=== PATIENT | female | born 1945 | race Two or more races ===

== ENCOUNTER 2020-09-22 13:45 | Inpatient (IN) | payer OTHER ==
[~2020-09-22] VITALS: Ht 160 cm; Wt 85.0 kg
[2020-09-22] MEDS ORDERED: LORazepam 2MG/ML-1ML VIAL IV ONE (14:15)
[2020-09-22] MEDS ORDERED: SODIUM CHLORIDE 0.9% 500 ML IV ONE (14:15)
[2020-09-22] MEDS ORDERED: ONDANSETRON HCL 4 MG/2 ML VIAL IV ONE (14:15)
[2020-09-22 14:59] LABS: Basophils # (auto) 0 10 ^3/uL (0-0.2); Basophils % (auto) 0.5 % (0.0-2.0); Eosinophils # (auto) 0 10 ^3/uL (0-0.8); Eosinophils % (auto) 0.5 % (0.0-7.0); Hematocrit 36.1 % (36.0-46.0); Hemoglobin 12.8 g/dL (12.2-16.2); Mean Corpuscular Hemoglobin 30.3 pg (28.0-32.0); Mean Corpuscular Hgb Conc. 35.5 g/dL (32.0-36.0); Mean Corpuscular Volume 85.5 fL (80.0-100.0); Monocytes # (auto) 0.3 10 ^3/uL (0-1.3); Monocytes % (auto) 3.1 % (0.0-12.0); Neutrophils # (auto) 8.5 10 ^3/uL (1.6-8.6); Neutrophils % (auto) 85.9 % (37.0-80.0); Red Blood Cells 4.23 10^6/uL (4.0-5.20); Red Cell Distribution Width 14.5 % (11.8-14.3); White Blood Cell 9.9 10^3/uL (4.4-10.8)
[2020-09-22 15:38] LABS: Albumin 3.6 g/dL (3.4-5.0); Anion Gap 7 (5-15); Blood Urea Nitrogen 20 mg/dL (7-18); Calcium 8.5 mg/dL (8.5-10.1); Carbon Dioxide 26 mmol/L (21-32); Chloride 104 mmol/L (98-107); Glucose 194 mg/dL (74-106); Magnesium 1.9 mg/dL (1.6-2.6); Potassium 3.7 mmol/L (3.5-5.1); Sodium 137 mmol/L (136-145)
[2020-09-22 15:43] LABS: Alanine Aminotransferase 21 U/L (13-56); Alkaline Phosphatase 127 U/L (45-117); Aspartate Aminotransferase 33 U/L (15-37); Bilirubin, Total 0.7 mg/dL (0.2-1.0); GFR African American 94 mL/min; GFR Non-African American 77 mL/min; Total Protein 9.1 g/dL (6.4-8.2)
[2020-09-22] MEDS ORDERED: MORPHINE SULF INJ 2 MG/ML SYRINGE 1ML IV PRN (18:15)
[2020-09-22] MEDS ORDERED: NITROGLYCERIN 0.4 MG SL TAB SL PRN (18:15)
[2020-09-22 19:59] VITALS: BP 162/82
[2020-09-22] MEDS ORDERED: ONDANSETRON HCL 4 MG/2 ML VIAL IV PRN (20:30)
[2020-09-22] MEDS ORDERED: ACETAMINOPHEN 325 MG TAB PO PRN (20:30)
[2020-09-22] MEDS ORDERED: ONDANSETRON HCL 4 MG/2 ML VIAL ONE (20:37)
[2020-09-22] MEDS ORDERED: LISI20TA28 PO (21:54)
[2020-09-22] MEDS ORDERED: LEVO100T8 PO (21:54)
[2020-09-22] MEDS ORDERED: METF-370 PO (21:54)
[2020-09-22] MEDS ORDERED: GLIP5TAB12 PO (21:54)
[2020-09-22 22:00] VITALS: BP 119/63
[2020-09-23] MEDS ORDERED: hydrALAZINE HCL 20 MG/ML VL IV PRN (02:30)
[2020-09-23] MEDS ORDERED: DOCUSATE SOD 100 MG CAP PO PRN (02:30)
[2020-09-23] MEDS ORDERED: ALBUTEROL SULF 2.5 MG/0.5ML(0.5%) NEB SOLN NEB PRN (02:30)
[2020-09-23] MEDS ORDERED: HYDROcodone-ACET 5/325MG TAB PO PRN (02:30)
[2020-09-23] MEDS ORDERED: ACETAMINOPHEN 325 MG TAB PO PRN (02:30)
[2020-09-23] MEDS ORDERED: NITROGLYCERIN 0.4 MG SL TAB SL PRN (02:30)
[2020-09-23] MEDS ORDERED: ALUM & MAG HYDROX-SIMETH LIQ(MAALOX) 30 ML PO PRN (02:30)
[2020-09-23] MEDS ORDERED: METOCLOPRAMIDE HCL 5MG/ml INJ 2ml VIAL IV PRN (02:30)
[2020-09-23] MEDS ORDERED: MORPHINE SULF INJ 2 MG/ML SYRINGE 1ML IV PRN ×2 (02:30)
[2020-09-23] MEDS ORDERED: DEXTROSE (50%) 50ML SYRG IV PRN (02:30)
[2020-09-23] MEDS ORDERED: ENOXAPARIN SOD 40 MG/0.4 ML SYRINGE SC ONE (02:30)
[2020-09-23] MEDS ORDERED: LORazepam 0.5 MG TAB PO PRN (02:30)
[2020-09-23] MEDS ORDERED: IPRATROPIUM BROM 0.5 MG/2.5ML INH SOL NEB PRN (02:45)
[2020-09-23 02:46] VITALS: BP 119/63
[2020-09-23 05:00] VITALS: BP 127/75
[2020-09-23] MEDS: InsuLIN REG 1unit/0.01ml Soln (100units/ml) SC SCH ×4 (06:00→23:23)
[2020-09-23] MEDS: ACCU-CHEK COMFORT CURVE STRIP VI SCH ×4 (06:00→23:21)
[2020-09-23] MEDS ORDERED: IPRATROPIUM BROM 0.5 MG/2.5ML INH SOL NEB SCH (06:00)
[2020-09-23] MEDS: SODIUM CHLORIDE 0.9% 1,000 ML IV SCH ×2 (06:25→17:25)
[2020-09-23] MEDS: FUROSEMIDE 20 MG/2 ML VIAL IV SCH ×2 (06:26→17:24)
[2020-09-23] MEDS: methylPREDNISolone SOD SUCC 40 MG/ML VL IV SCH ×3 (06:26→22:14)
[2020-09-23] MEDS: DOXYCYCLINE 100MG/250ML 250 ML IV SCH ×2 (06:26→12:45)
[2020-09-23] MEDS: LEVOTHYROXINE SODIUM 100 MCG TAB PO SCH (06:27)
[2020-09-23] MEDS ORDERED: glipiZIDE 5 MG TAB PO SCH (07:00)
[2020-09-23 07:23] LABS: Cholesterol 178 mg/dL (< 200); HDL Cholesterol 83 mg/dL (40-59); LDL Cholesterol 90 mg/dL (< 100); Triglycerides 77 mg/dL (< 150)
[2020-09-23] MEDS: metFORMIN HYDROCHLORIDE 500 MG TAB PO SCH ×2 (09:03→17:25)
[2020-09-23] MEDS: ASPirin 81 mg TAB PO SCH (09:04)
[2020-09-23] MEDS: CITALOPRAM HYDROBR 20 MG TAB PO SCH (09:04)
[2020-09-23] MEDS: FAMOTIDINE (10MG/ML) 2ML VL IV SCH ×2 (09:04→22:14)
[2020-09-23] MEDS: METOPROLOL SUCCINATE XL 50 MG TAB PO SCH (09:05)
[2020-09-23] MEDS: LISINOPRIL 20 MG TAB PO SCH (09:05)
[2020-09-23 09:13] VITALS: BP 145/78
[2020-09-23 13:15] VITALS: BP 134/75
[2020-09-23 17:45] VITALS: BP 140/74
[2020-09-23 21:53] VITALS: BP 135/67
[2020-09-23] MEDS: ATORVASTATIN 20 MG TAB PO SCH (22:15)
[2020-09-24] MEDS: DOXYCYCLINE 100MG/250ML 250 ML IV SCH ×2 (02:06→13:07)
[2020-09-24 03:07] LABS: Basophils # (auto) 0 10 ^3/uL (0-0.2); Basophils % (auto) 0.2 % (0.0-2.0); Eosinophils # (auto) 0 10 ^3/uL (0-0.8); Hematocrit 36.9 % (36.0-46.0); Hemoglobin 12.8 g/dL (12.2-16.2); Lymphocytes # (auto) 0.7 10 ^3/uL (0.4-5.4); Mean Corpuscular Hemoglobin 29.8 pg (28.0-32.0); Mean Corpuscular Hgb Conc. 34.8 g/dL (32.0-36.0); Mean Corpuscular Volume 85.6 fL (80.0-100.0); Monocytes # (auto) 0.1 10 ^3/uL (0-1.3); Monocytes % (auto) 0.8 % (0.0-12.0); Neutrophils # (auto) 8.6 10 ^3/uL (1.6-8.6); Red Blood Cells 4.31 10^6/uL (4.0-5.20); Red Cell Distribution Width 14.2 % (11.8-14.3); White Blood Cell 9.4 10^3/uL (4.4-10.8)
[2020-09-24 03:26] LABS: Albumin 3.2 g/dL (3.4-5.0); Calcium 8.8 mg/dL (8.5-10.1); Potassium 3.9 mmol/L (3.5-5.1)
[2020-09-24 03:29] LABS: BUN/Creatinine Ratio 20.8; Total Protein 8.7 g/dL (6.4-8.2)
[2020-09-24 05:07] VITALS: BP 149/67
[2020-09-24] MEDS: methylPREDNISolone SOD SUCC 40 MG/ML VL IV SCH ×3 (05:34→22:28)
[2020-09-24] MEDS: FUROSEMIDE 20 MG/2 ML VIAL IV SCH ×2 (05:35→16:57)
[2020-09-24] MEDS: ACCU-CHEK COMFORT CURVE STRIP VI SCH ×3 (05:47→16:59)
[2020-09-24] MEDS: InsuLIN REG 1unit/0.01ml Soln (100units/ml) SC SCH ×3 (05:50→17:09)
[2020-09-24] MEDS: LEVOTHYROXINE SODIUM 100 MCG TAB PO SCH (06:10)
[2020-09-24 09:00] VITALS: BP 127/57
[2020-09-24] MEDS: metFORMIN HYDROCHLORIDE 500 MG TAB PO SCH ×2 (09:37→16:57)
[2020-09-24] MEDS: CITALOPRAM HYDROBR 20 MG TAB PO SCH (09:38)
[2020-09-24] MEDS: ASPirin 81 mg TAB PO SCH (09:38)
[2020-09-24] MEDS: LISINOPRIL 20 MG TAB PO SCH (09:38)
[2020-09-24] MEDS: METOPROLOL SUCCINATE XL 50 MG TAB PO SCH (09:38)
[2020-09-24] MEDS: FAMOTIDINE (10MG/ML) 2ML VL IV SCH ×2 (09:38→22:28)
[2020-09-24] MEDS: SODIUM CHLORIDE 0.9% 1,000 ML IV SCH (11:37)
[2020-09-24 13:00] VITALS: BP 131/60
[2020-09-24 17:00] VITALS: BP 146/76
[2020-09-24 22:00] VITALS: BP 165/81
[2020-09-24] MEDS: ATORVASTATIN 20 MG TAB PO SCH (22:28)
[2020-09-25] MEDS: ACCU-CHEK COMFORT CURVE STRIP VI SCH ×4 (00:49→18:14)
[2020-09-25] MEDS: InsuLIN REG 1unit/0.01ml Soln (100units/ml) SC SCH ×4 (00:49→18:00)
[2020-09-25] MEDS: DOXYCYCLINE 100MG/250ML 250 ML IV SCH (01:50)
[2020-09-25 03:33] LABS: Basophils # (auto) 0 10 ^3/uL (0-0.2); Basophils % (auto) 0.1 % (0.0-2.0); Eosinophils # (auto) 0 10 ^3/uL (0-0.8); Hematocrit 37.4 % (36.0-46.0); Lymphocytes # (auto) 0.8 10 ^3/uL (0.4-5.4); Mean Corpuscular Hemoglobin 29.5 pg (28.0-32.0); Mean Corpuscular Hgb Conc. 34.8 g/dL (32.0-36.0); Mean Corpuscular Volume 84.7 fL (80.0-100.0); Monocytes # (auto) 0.2 10 ^3/uL (0-1.3); Monocytes % (auto) 2.1 % (0.0-12.0); Neutrophils # (auto) 10.1 10 ^3/uL (1.6-8.6); Neutrophils % (auto) 90.8 % (37.0-80.0); Nucleated Red Blood Cells % 0.1 %; Red Blood Cells 4.42 10^6/uL (4.0-5.20); White Blood Cell 11.1 10^3/uL (4.4-10.8)
[2020-09-25 04:09] LABS: Potassium 3.5 mmol/L (3.5-5.1)
[2020-09-25] MEDS: SODIUM CHLORIDE 0.9% 1,000 ML IV SCH ×2 (04:09→21:10)
[2020-09-25 04:13] LABS: BUN/Creatinine Ratio 25.7; Calcium 8.8 mg/dL (8.5-10.1)
[2020-09-25 04:34] LABS: Total Protein 8.2 g/dL (6.4-8.2)
[2020-09-25 05:00] VITALS: BP 163/76
[2020-09-25] MEDS: methylPREDNISolone SOD SUCC 40 MG/ML VL IV SCH ×3 (05:26→21:25)
[2020-09-25] MEDS: FUROSEMIDE 20 MG/2 ML VIAL IV SCH ×2 (05:26→18:14)
[2020-09-25] MEDS: LEVOTHYROXINE SODIUM 100 MCG TAB PO SCH (06:13)
[2020-09-25 08:00] VITALS: BP 136/75
[2020-09-25] MEDS: metFORMIN HYDROCHLORIDE 500 MG TAB PO SCH ×2 (08:25→18:14)
[2020-09-25] MEDS: ASPirin 81 mg TAB PO SCH (10:24)
[2020-09-25] MEDS: METOPROLOL SUCCINATE XL 50 MG TAB PO SCH (10:26)
[2020-09-25] MEDS: LISINOPRIL 20 MG TAB PO SCH (10:31)
[2020-09-25] MEDS: CITALOPRAM HYDROBR 20 MG TAB PO SCH (10:32)
[2020-09-25] MEDS: FAMOTIDINE (10MG/ML) 2ML VL IV SCH ×2 (10:32→21:25)
[2020-09-25 10:34] LABS: INR 1.18 (0.9-1.15); Partial Thromboplastin Time 25.6 sec (23.0-31.2)
[2020-09-25] MEDS: metroNIDAZOLE 500MG/100ML 100 ML IV SCH ×3 (10:40→21:25)
[2020-09-25 12:00] VITALS: BP 147/74
[2020-09-25] MEDS ORDERED: cefTRIAXone 1GM/50ML D5W 50 ML IV ONE (13:00)
[2020-09-25 16:00] VITALS: BP 143/73
[2020-09-25] MEDS: DOXYCYCLINE 100 MG TAB/CAP PO SCH (21:25)
[2020-09-25] MEDS: ATORVASTATIN 20 MG TAB PO SCH (21:25)
[2020-09-25 22:00] VITALS: BP 139/74
[2020-09-26] MEDS: ACCU-CHEK COMFORT CURVE STRIP VI SCH ×3 (00:19→12:45)
[2020-09-26] MEDS: InsuLIN REG 1unit/0.01ml Soln (100units/ml) SC SCH ×3 (00:30→12:46)
[2020-09-26 05:00] VITALS: BP 142/70
[2020-09-26] MEDS: metroNIDAZOLE 500MG/100ML 100 ML IV SCH ×2 (06:31→14:24)
[2020-09-26] MEDS: methylPREDNISolone SOD SUCC 40 MG/ML VL IV SCH ×2 (06:32→14:24)
[2020-09-26] MEDS: FUROSEMIDE 20 MG/2 ML VIAL IV SCH (06:32)
[2020-09-26] MEDS: LEVOTHYROXINE SODIUM 100 MCG TAB PO SCH (06:50)
[2020-09-26 08:30] VITALS: BP 148/73
[2020-09-26] MEDS: metFORMIN HYDROCHLORIDE 500 MG TAB PO SCH (08:52)
[2020-09-26] MEDS: SODIUM CHLORIDE 0.9% 1,000 ML IV SCH (08:56)
[2020-09-26] MEDS ORDERED: cefTRIAXone 1GM/50ML D5W 50 ML IV SCH (09:00)
[2020-09-26] MEDS: ASPirin 81 mg TAB PO SCH (10:09)
[2020-09-26] MEDS: FAMOTIDINE (10MG/ML) 2ML VL IV SCH (10:09)
[2020-09-26] MEDS: CITALOPRAM HYDROBR 20 MG TAB PO SCH (10:10)
[2020-09-26] MEDS: DOXYCYCLINE 100 MG TAB/CAP PO SCH (10:10)
[2020-09-26] MEDS: METOPROLOL SUCCINATE XL 50 MG TAB PO SCH (10:12)
[2020-09-26] MEDS: LISINOPRIL 20 MG TAB PO SCH (10:13)
[2020-09-26 12:30] VITALS: BP 136/76
== END 2020-09-26 16:50 | disposition home or self-care (01) | DRG 871 ==
LOC: ER 13:45 → TELE 18:10 → TELE-CENTR 19:35
PROVIDERS: ADMIT Hospitalist; ATTEND Family Medicine
DX: A41.9 Sepsis, unspecified organism (principal); J18.9 Pneumonia, unspecified organism; J44.0 Chronic obstructive pulmonary disease with (acute) lower respiratory infection; I42.9 Cardiomyopathy, unspecified; K80.00 Calculus of gallbladder with acute cholecystitis without obstruction; I50.9 Heart failure, unspecified; D69.6 Thrombocytopenia, unspecified; E66.01 Morbid (severe) obesity due to excess calories; K31.84 Gastroparesis; K29.70 Gastritis, unspecified, without bleeding; K21.9 Gastro-esophageal reflux disease without esophagitis; E03.9 Hypothyroidism, unspecified; F32.9 Major depressive disorder, single episode, unspecified; J84.10 Pulmonary fibrosis, unspecified; Z68.33 Body mass index [BMI] 33.0-33.9, adult; D64.9 Anemia, unspecified; E11.43 Type 2 diabetes mellitus with diabetic autonomic (poly)neuropathy; E78.5 Hyperlipidemia, unspecified; I08.0 Rheumatic disorders of both mitral and aortic valves; I11.0 Hypertensive heart disease with heart failure; Z20.822 Contact with and (suspected) exposure to COVID-19; Z82.49 Family history of ischemic heart disease and other diseases of the circulatory system; Z79.84 Long term (current) use of oral hypoglycemic drugs; Z79.899 Other long term (current) drug therapy
CPT/HCPCS: 36415; 70450; 71045; 76705; 80053; 80061; 82962; 83036; 83735; 83880; 84484; 85025; 85049; 85610; 85730; 86850; 86900; 86901; 87040; 87426; 93005; 93306; 94640; 96361; 96374; 96375; G0378; J0696; J1815; J2405; J3490; J7042

== ENCOUNTER 2021-05-28 14:16 | Inpatient (IN) | payer OTHER ==
[~2021-05-28] VITALS: Ht 172.7 cm; Wt 91.5 kg
[~2021-05-28 14:16] MED LIST: GLIP5TAB12 PO; LEVO100T8 PO; LISI20TA28 PO; METF-370 PO
[2021-05-28] MEDS ORDERED: SODIUM CHLORIDE 0.9% 1,000 ML IV ONE (14:45)
[2021-05-28] MEDS ORDERED: MECL1TAB42 PO (16:21)
[2021-05-28 16:27] LABS: Basophils # (auto) 0 10 ^3/uL (0-0.2); Basophils % (auto) 0.6 % (0.0-2.0); Eosinophils # (auto) 0 10 ^3/uL (0-0.8); Eosinophils % (auto) 0.4 % (0.0-7.0); Hematocrit 40.7 % (36.0-46.0); Hemoglobin 13.9 g/dL (12.2-16.2); Lymphocytes # (auto) 0.4 10 ^3/uL (0.4-5.4); Lymphocytes % (auto) 4.6 % (10.0-50.0); Mean Corpuscular Hemoglobin 29.1 pg (28.0-32.0); Mean Corpuscular Hgb Conc. 34.1 g/dL (32.0-36.0); Mean Corpuscular Volume 85.2 fL (80.0-100.0); Monocytes # (auto) 0.3 10 ^3/uL (0-1.3); Monocytes % (auto) 3.7 % (0.0-12.0); Neutrophils # (auto) 7.6 10 ^3/uL (1.6-8.6); Neutrophils % (auto) 90.7 % (37.0-80.0); Nucleated Red Blood Cells % 0.1 %; Red Blood Cells 4.78 10^6/uL (4.0-5.20); Red Cell Distribution Width 13.8 % (11.8-14.3); White Blood Cell 8.4 10^3/uL (4.4-10.8)
[2021-05-28 16:42] LABS: Albumin 3.3 g/dL (3.4-5.0); Calcium 8.8 mg/dL (8.5-10.1); Potassium 4.5 mmol/L (3.5-5.1)
[2021-05-28 16:47] LABS: BUN/Creatinine Ratio 29.8; Bilirubin, Total 1.3 mg/dL (0.2-1.0)
[2021-05-28] MEDS ORDERED: ONDANSETRON HCL 4 MG/2 ML VIAL IV ONE (17:00)
[2021-05-28] MEDS ORDERED: MORPHINE SULFATE INJECTION 2 MG/ML SYRG IV PRN ×2 (17:15→23:15)
[2021-05-28] MEDS ORDERED: NITROGLYCERIN 0.4 MG SL TAB SL PRN (17:15)
[2021-05-28] MEDS ORDERED: DEXTROSE (50%) 50ML SYRG IV PRN ×2 (17:15→23:15)
[2021-05-28] MEDS ORDERED: PANTOPRAZOLE 40 MG/10 ML VIAL INJ IV ONE ×2 (17:45→23:15)
[2021-05-28] MEDS: ACCU-CHEK COMFORT CURVE STRIP VI SCH (22:15)
[2021-05-28] MEDS: InsuLIN REG 1unit/0.01ml Soln (100units/ml) SC SCH (22:18)
[2021-05-28] MEDS: SODIUM CHLORIDE 0.9% 1,000 ML IV SCH (23:00)
[2021-05-28] MEDS ORDERED: PROMETHAZINE-DM 5 ML ORAL SYRUP PO PRN (23:15)
[2021-05-28] MEDS ORDERED: LORazepam 0.5 MG TAB PO PRN (23:15)
[2021-05-28] MEDS ORDERED: LABETALOL HCL 5 MG/ML 4ML SYRINGE IV PRN (23:15)
[2021-05-28] MEDS ORDERED: MECLIZINE HCL 25 MG TAB PO PRN (23:15)
[2021-05-28] MEDS ORDERED: HYDROcodone-ACET 5/325MG TAB PO ONE (23:15)
[2021-05-28] MEDS ORDERED: SUCRALFATE 1 GM/10 ML ORAL SUSP PO ONE (23:15)
[2021-05-28] MEDS ORDERED: DOCUSATE SOD 100 MG CAP PO PRN (23:15)
[2021-05-28] MEDS ORDERED: ACETAMINOPHEN 325 MG TAB PO PRN (23:15)
[2021-05-28] MEDS ORDERED: hydrALAZINE HCL 20 MG/ML VL IV PRN (23:15)
[2021-05-28] MEDS ORDERED: METOCLOPRAMIDE HCL 5MG/ml INJ 2ml VIAL IV PRN (23:15)
[2021-05-28] MEDS ORDERED: metroNIDAZOLE 500MG/100ML 100 ML IV ONE (23:15)
[2021-05-28] MEDS ORDERED: IPRATROPIUM BROM 0.5 MG/2.5ML INH SOL NEB ONE (23:15)
[2021-05-28] MEDS ORDERED: MULTIPLE VITAMINS W/ MINERALS TAB PO ONE (23:15)
[2021-05-28] MEDS ORDERED: FOLIC ACID 1 MG TAB PO ONE (23:15)
[2021-05-28] MEDS ORDERED: MONTELUKAST SODIUM 10 MG TAB PO ONE (23:15)
[2021-05-28] MEDS ORDERED: DOXYCYCLINE 100MG/250ML 250 ML IV ONE (23:15)
[2021-05-28] MEDS ORDERED: LACTULOSE 20Gm/30ML SOLN PO PRN (23:15)
[2021-05-28] MEDS ORDERED: ISOSORBIDE MONONITRATE ER 60 MG TAB PO ONE (23:15)
[2021-05-28 23:32] LABS: Phosphorus 3.5 mg/dL (2.5-4.90)
[2021-05-29] VITALS (8 sets, daily range): BP systolic 123–151; BP diastolic 69–88
[2021-05-29] MEDS ORDERED: IPRATROPIUM BROM 0.5 MG/2.5ML INH SOL NEB SCH (02:00)
[2021-05-29 02:18] LABS: Urine Bacteria NONE SEEN /hpf (None Seen); Urine Blood TRACE /uL (Negative); Urine Hyaline Cast FEW /lpf (0 - 2); Urine Specific Gravity 1.025 (1.001-1.035); Urine WBC 1 /hpf (0 - 5)
[2021-05-29 02:29] LABS: Alcohol, Urine < 3.0 mg/dL (0-10); Amphetamine Screen, Urine NEGATIVE (NEGATIVE); Barbiturate Scree,Urine NEGATIVE (NEGATIVE); Benzodiazephine Screen, Urine NEGATIVE (NEGATIVE); Cannabinoid Screen, Urine NEGATIVE (NEGATIVE); Cocaine Screen, Urine NEGATIVE (NEGATIVE); Opiate Scree,Urine NEGATIVE (NEGATIVE); Phencyclidine Screen, Urine NEGATIVE (NEGATIVE)
[2021-05-29] MEDS: DOXYCYCLINE 100MG/250ML 250 ML IV SCH ×3 (04:14→23:15)
[2021-05-29] MEDS ORDERED: ACETYLCYSTEINE 10 %(100MG/ML) SOL 4ML NEB SCH (06:00)
[2021-05-29 06:21] LABS: Basophils # (auto) 0 10 ^3/uL (0-0.2); Basophils % (auto) 0.1 % (0.0-2.0); Eosinophils # (auto) 0.1 10 ^3/uL (0-0.8); Eosinophils % (auto) 1.3 % (0.0-7.0); Hematocrit 34.7 % (36.0-46.0); Hemoglobin 12.3 g/dL (12.2-16.2); Lymphocytes # (auto) 0.5 10 ^3/uL (0.4-5.4); Lymphocytes % (auto) 10.8 % (10.0-50.0); Mean Corpuscular Hgb Conc. 35.4 g/dL (32.0-36.0); Mean Corpuscular Volume 84.7 fL (80.0-100.0); Monocytes # (auto) 0.3 10 ^3/uL (0-1.3); Monocytes % (auto) 6.8 % (0.0-12.0); Neutrophils # (auto) 4.1 10 ^3/uL (1.6-8.6); Nucleated Red Blood Cells % 0.1 %; Red Blood Cells 4.09 10^6/uL (4.0-5.20); White Blood Cell 5.1 10^3/uL (4.4-10.8)
[2021-05-29 06:34] LABS: Potassium 3.5 mmol/L (3.5-5.1)
[2021-05-29] MEDS: FUROSEMIDE 20 MG/2 ML VIAL IV SCH ×2 (06:34→18:13)
[2021-05-29] MEDS: metroNIDAZOLE 500MG/100ML 100 ML IV SCH ×3 (06:34→22:10)
[2021-05-29] MEDS: SUCRALFATE 1 GM/10 ML ORAL SUSP PO SCH ×4 (06:35→22:10)
[2021-05-29] MEDS: LEVOTHYROXINE SODIUM 88 MCG TAB PO SCH (06:35)
[2021-05-29] MEDS: ACCU-CHEK COMFORT CURVE STRIP VI SCH ×8 (06:35→22:00)
[2021-05-29] MEDS: InsuLIN REG 1unit/0.01ml Soln (100units/ml) SC SCH ×7 (06:41→22:32)
[2021-05-29 06:53] LABS: Albumin 2.9 g/dL (3.4-5.0); BUN/Creatinine Ratio 34.2; Bilirubin, Total 1.1 mg/dL (0.2-1.0); Calcium 8.1 mg/dL (8.5-10.1); Magnesium 1.9 mg/dL (1.6-2.6); Phosphorus 3.5 mg/dL (2.5-4.90); Total Protein 6.7 g/dL (6.4-8.2)
[2021-05-29] MEDS: FOLIC ACID 1 MG TAB PO SCH (09:30)
[2021-05-29] MEDS: PANTOPRAZOLE 40 MG/10 ML VIAL INJ IV SCH (09:30)
[2021-05-29] MEDS: CITALOPRAM HYDROBR 20 MG TAB PO SCH (09:30)
[2021-05-29] MEDS: ASPirin 81 mg TAB PO SCH (09:30)
[2021-05-29] MEDS: ISOSORBIDE MONONITRATE 20 MG TAB PO SCH ×2 (09:31→22:15)
[2021-05-29] MEDS: CHOLECALCIFEROL (VITD3) 2,000 UNIT CAP/TAB PO SCH (09:31)
[2021-05-29] MEDS: CYANOCOBALAMIN 500 MCG TAB PO SCH (09:31)
[2021-05-29] MEDS: ENOXAPARIN SOD 40 MG/0.4 ML SYRINGE SC SCH (09:31)
[2021-05-29] MEDS: POTASSIUM CHL 20 Meq TABLET PO SCH ×2 (09:31→22:09)
[2021-05-29] MEDS: MULTIPLE VITAMINS W/ MINERALS TAB PO SCH (09:31)
[2021-05-29] MEDS: SODIUM CHLORIDE 0.9% 1,000 ML IV SCH (18:15)
[2021-05-29] MEDS ORDERED: InsuLIN REG 1unit/0.01ml Soln (100units/ml) SC SCH (22:00)
[2021-05-29] MEDS ORDERED: ATORVASTATIN 20 MG TAB PO SCH (22:00)
[2021-05-29] MEDS ORDERED: MONTELUKAST SODIUM 10 MG TAB PO SCH (22:00)
[2021-05-30 05:00] VITALS: BP 132/67
[2021-05-30 06:05] LABS: Basophils # (auto) 0 10 ^3/uL (0-0.2); Basophils % (auto) 0.3 % (0.0-2.0); Eosinophils # (auto) 0.2 10 ^3/uL (0-0.8); Eosinophils % (auto) 2.7 % (0.0-7.0); Hematocrit 36.8 % (36.0-46.0); Hemoglobin 12.9 g/dL (12.2-16.2); Lymphocytes # (auto) 0.6 10 ^3/uL (0.4-5.4); Lymphocytes % (auto) 9.1 % (10.0-50.0); Mean Corpuscular Hemoglobin 29.6 pg (28.0-32.0); Mean Corpuscular Hgb Conc. 35.1 g/dL (32.0-36.0); Mean Corpuscular Volume 84.3 fL (80.0-100.0); Monocytes # (auto) 0.5 10 ^3/uL (0-1.3); Monocytes % (auto) 8.4 % (0.0-12.0); Neutrophils % (auto) 79.5 % (37.0-80.0); Nucleated Red Blood Cells % 0.1 %; Red Blood Cells 4.37 10^6/uL (4.0-5.20); Red Cell Distribution Width 13.7 % (11.8-14.3); White Blood Cell 6.3 10^3/uL (4.4-10.8)
[2021-05-30 06:14] LABS: BUN/Creatinine Ratio 28.9; Calcium 8.3 mg/dL (8.5-10.1); Magnesium 1.7 mg/dL (1.6-2.6); Phosphorus 2.7 mg/dL (2.5-4.90); Potassium 3.7 mmol/L (3.5-5.1)
[2021-05-30] MEDS: SUCRALFATE 1 GM/10 ML ORAL SUSP PO SCH ×2 (06:29→12:56)
[2021-05-30] MEDS: LEVOTHYROXINE SODIUM 88 MCG TAB PO SCH (06:29)
[2021-05-30] MEDS: ACCU-CHEK COMFORT CURVE STRIP VI SCH ×3 (06:29→11:30)
[2021-05-30] MEDS: metroNIDAZOLE 500MG/100ML 100 ML IV SCH ×2 (06:29→14:00)
[2021-05-30] MEDS: FUROSEMIDE 20 MG/2 ML VIAL IV SCH (06:30)
[2021-05-30] MEDS: InsuLIN REG 1unit/0.01ml Soln (100units/ml) SC SCH ×2 (06:39→11:30)
[2021-05-30 08:00] VITALS: BP 137/75
[2021-05-30 09:00] VITALS: BP 137/75
[2021-05-30 09:10] LABS: INR 1.1 (0.9-1.15); Partial Thromboplastin Time 28.8 sec (23.6-33.0)
[2021-05-30] MEDS: MULTIPLE VITAMINS W/ MINERALS TAB PO SCH (10:00)
[2021-05-30] MEDS: ASPirin 81 mg TAB PO SCH (10:00)
[2021-05-30] MEDS: CHOLECALCIFEROL (VITD3) 2,000 UNIT CAP/TAB PO SCH (10:00)
[2021-05-30] MEDS: POTASSIUM CHL 20 Meq TABLET PO SCH (10:00)
[2021-05-30] MEDS: ISOSORBIDE MONONITRATE 20 MG TAB PO SCH (10:00)
[2021-05-30] MEDS: ENOXAPARIN SOD 40 MG/0.4 ML SYRINGE SC SCH (10:00)
[2021-05-30] MEDS: FOLIC ACID 1 MG TAB PO SCH (10:00)
[2021-05-30] MEDS: CYANOCOBALAMIN 500 MCG TAB PO SCH (10:00)
[2021-05-30] MEDS: CITALOPRAM HYDROBR 20 MG TAB PO SCH (10:00)
[2021-05-30] MEDS: PANTOPRAZOLE 40 MG/10 ML VIAL INJ IV SCH (10:00)
[2021-05-30] MEDS ORDERED: CAL025T GT (10:51)
[2021-05-30] MEDS ORDERED: MET25T PO (10:51)
[2021-05-30] MEDS: DOXYCYCLINE 100MG/250ML 250 ML IV SCH (11:15)
[2021-05-30 13:08] VITALS: BP 128/75
== END 2021-05-30 16:05 | disposition home or self-care (01) | DRG 306 ==
LOC: ER 14:16 → TELE 17:06 → TELE-WESTW 23:25
PROVIDERS: ADMIT Hospitalist; ATTEND Internal Medicine
DX: I08.0 Rheumatic disorders of both mitral and aortic valves (principal); I50.33 Acute on chronic diastolic (congestive) heart failure; J84.9 Interstitial pulmonary disease, unspecified; E44.1 Mild protein-calorie malnutrition; K80.00 Calculus of gallbladder with acute cholecystitis without obstruction; I16.9 Hypertensive crisis, unspecified; M35.1 Other overlap syndromes; I11.0 Hypertensive heart disease with heart failure; D69.6 Thrombocytopenia, unspecified; E11.65 Type 2 diabetes mellitus with hyperglycemia; K52.9 Noninfective gastroenteritis and colitis, unspecified; K21.9 Gastro-esophageal reflux disease without esophagitis; K31.84 Gastroparesis; F32.9 Major depressive disorder, single episode, unspecified; J44.9 Chronic obstructive pulmonary disease, unspecified; E03.9 Hypothyroidism, unspecified; Z20.822 Contact with and (suspected) exposure to COVID-19; Z53.29 Procedure and treatment not carried out because of patient's decision for other reasons; E11.43 Type 2 diabetes mellitus with diabetic autonomic (poly)neuropathy; E66.01 Morbid (severe) obesity due to excess calories; E78.5 Hyperlipidemia, unspecified; Z82.49 Family history of ischemic heart disease and other diseases of the circulatory system; Z68.30 Body mass index [BMI] 30.0-30.9, adult
CPT/HCPCS: 36415; 36600; 70450; 71045; 80048; 80053; 80061; 80307; 81001; 82728; 82805; 82962; 83036; 83615; 83690; 83735; 83880; 84100; 84443; 84484; 85025; 85379; 85610; 85730; 86850; 86900; 86901; 87040; 87086; 93005; 96361; 96365; 96375; C9113; G0378; J1815; J2405; J3490

== ENCOUNTER 2021-07-11 11:51 | Emergency (ER) | payer OTHER ==
[~2021-07-11] VITALS: Ht 162.6 cm; Wt 89.8 kg
[~2021-07-11 11:51] MED LIST changes: +MET25T PO
[2021-07-11] MEDS ORDERED: BENZ100C19 PO (14:27)
[2021-07-11] MEDS ORDERED: DOXY-286 PO (14:27)
[2021-07-11] MEDS ORDERED: cefTRIAXone SOD 1,000 MG VL IM ONE (14:30)
[2021-07-11] MEDS ORDERED: methylPREDNISolone SOD SUCC 125 MG/2 ML VL IM ONE (14:30)
[2021-07-11 14:45] VITALS: BP 105/68
== END 2021-07-11 14:58 | disposition home or self-care (01) ==
LOC: ER 11:51
DX: J18.9 Pneumonia, unspecified organism (principal); I10 Essential (primary) hypertension; E11.9 Type 2 diabetes mellitus without complications; E03.9 Hypothyroidism, unspecified; Z20.822 Contact with and (suspected) exposure to COVID-19
CPT/HCPCS: 36415; 71046; 87426; 96372; 99284; J0696; J2930

== ENCOUNTER 2021-08-04 18:49 | Inpatient (IN) | payer OTHER ==
[~2021-08-04] VITALS: Ht 170.2 cm; Wt 85.1 kg
[~2021-08-04 18:49] MED LIST changes: +BENZ100C19 PO; +DOXY-286 PO
[2021-08-04 19:33] LABS: Basophils # (auto) 0.1 10 ^3/uL (0-0.2); Basophils % (auto) 2.1 % (0.0-2.0); Eosinophils # (auto) 0.2 10 ^3/uL (0-0.8); Eosinophils % (auto) 2.9 % (0.0-7.0); Hematocrit 38.3 % (36.0-46.0); Hemoglobin 13.5 g/dL (12.2-16.2); Lymphocytes # (auto) 1.5 10 ^3/uL (0.4-5.4); Lymphocytes % (auto) 22.3 % (10.0-50.0); Mean Corpuscular Hemoglobin 30.2 pg (28.0-32.0); Mean Corpuscular Hgb Conc. 35.2 g/dL (32.0-36.0); Mean Corpuscular Volume 85.6 fL (80.0-100.0); Monocytes # (auto) 0.4 10 ^3/uL (0-1.3); Monocytes % (auto) 6.3 % (0.0-12.0); Neutrophils # (auto) 4.5 10 ^3/uL (1.6-8.6); Neutrophils % (auto) 66.4 % (37.0-80.0); Red Blood Cells 4.48 10^6/uL (4.0-5.20); Red Cell Distribution Width 14.3 % (11.8-14.3); White Blood Cell 6.7 10^3/uL (4.4-10.8)
[2021-08-04 19:43] LABS: Albumin 3.4 g/dL (3.4-5.0); BUN/Creatinine Ratio 21.6; Calcium 9.7 mg/dL (8.5-10.1); Magnesium 2.1 mg/dL (1.6-2.6); Potassium 4.7 mmol/L (3.5-5.1)
[2021-08-04 19:45] LABS: Bilirubin, Total 0.7 mg/dL (0.2-1.0); Total Protein 7.8 g/dL (6.4-8.2)
[2021-08-04 20:14] LABS: INR 1.05 (0.9-1.15); Partial Thromboplastin Time 27.3 sec (23.6-33.0)
[2021-08-04] MEDS ORDERED: ACETAMINOPHEN 325 MG TAB PO PRN (22:45)
[2021-08-04] MEDS ORDERED: ONDANSETRON HCL 4 MG/2 ML VIAL IV PRN (22:45)
[2021-08-04] MEDS ORDERED: HYDROcodone-ACET 5/325MG TAB PO PRN (22:45)
[2021-08-04] MEDS ORDERED: DEXTROSE (50%) 50ML SYRG IV PRN (22:45)
[2021-08-04] MEDS ORDERED: DOCUSATE SOD 100 MG CAP PO PRN (22:45)
[2021-08-04] MEDS ORDERED: FUROSEMIDE 20 MG TAB PO ONE (23:00)
[2021-08-04] MEDS ORDERED: MORPHINE SULFATE INJ 2 MG/ml SYRG IV PRN (23:45)
[2021-08-04] MEDS ORDERED: NITROGLYCERIN 0.4 MG SL TAB SL PRN (23:45)
[2021-08-05 00:40] VITALS: BP 121/64
[2021-08-05 05:25] LABS: Basophils # (auto) 0 10 ^3/uL (0-0.2); Basophils % (auto) 0.5 % (0.0-2.0); Eosinophils # (auto) 0.2 10 ^3/uL (0-0.8); Eosinophils % (auto) 3.1 % (0.0-7.0); Hematocrit 37.4 % (36.0-46.0); Hemoglobin 13.2 g/dL (12.2-16.2); Lymphocytes # (auto) 1.6 10 ^3/uL (0.4-5.4); Lymphocytes % (auto) 24.4 % (10.0-50.0); Mean Corpuscular Hgb Conc. 35.3 g/dL (32.0-36.0); Mean Corpuscular Volume 85.1 fL (80.0-100.0); Monocytes # (auto) 0.4 10 ^3/uL (0-1.3); Monocytes % (auto) 6.5 % (0.0-12.0); Neutrophils # (auto) 4.2 10 ^3/uL (1.6-8.6); Neutrophils % (auto) 65.5 % (37.0-80.0); Red Blood Cells 4.39 10^6/uL (4.0-5.20); White Blood Cell 6.4 10^3/uL (4.4-10.8)
[2021-08-05 05:27] VITALS: BP_SYST 117; BP_SYST 152; BP_DIAS 63; BP_DIAS 90
[2021-08-05 05:33] LABS: Albumin 3.3 g/dL (3.4-5.0); Calcium 9.2 mg/dL (8.5-10.1); Potassium 4.2 mmol/L (3.5-5.1)
[2021-08-05 05:37] LABS: BUN/Creatinine Ratio 25.3; Bilirubin, Total 1.1 mg/dL (0.2-1.0); Total Protein 7.6 g/dL (6.4-8.2)
[2021-08-05] MEDS: SODIUM CHLOR 0.9% PF (SALINE LOCK) 10ML VIAL/SYR IV SCH ×3 (06:08→21:09)
[2021-08-05] MEDS: InsuLIN REG 1unit/0.01ml Soln (100units/ml) SC SCH ×4 (06:13→21:08)
[2021-08-05] MEDS: ACCU-CHEK COMFORT CURVE STRIP VI SCH ×4 (06:14→21:08)
[2021-08-05] MEDS: LEVOTHYROXINE SODIUM 100 MCG TAB PO SCH (06:19)
[2021-08-05 09:00] VITALS: BP 131/58
[2021-08-05] MEDS: FUROSEMIDE 20 MG/2 ML VIAL IV SCH (09:46)
[2021-08-05] MEDS: ASPirin 81 mg TAB PO SCH (09:46)
[2021-08-05] MEDS: CARVEDILOL 12.5 MG TAB PO SCH ×2 (09:47→21:09)
[2021-08-05 13:00] VITALS: BP 106/61
[2021-08-05 17:00] VITALS: BP 127/66
[2021-08-05 22:00] VITALS: BP 115/61
[2021-08-06 05:00] VITALS: BP 112/60
[2021-08-06] MEDS: SODIUM CHLOR 0.9% PF (SALINE LOCK) 10ML VIAL/SYR IV SCH ×3 (06:00→22:00)
[2021-08-06] MEDS: LEVOTHYROXINE SODIUM 100 MCG TAB PO SCH (06:30)
[2021-08-06] MEDS: InsuLIN REG 1unit/0.01ml Soln (100units/ml) SC SCH ×5 (06:31→23:16)
[2021-08-06] MEDS: ACCU-CHEK COMFORT CURVE STRIP VI SCH ×4 (06:34→22:00)
[2021-08-06] MEDS: ASPirin 81 mg TAB PO SCH (09:17)
[2021-08-06] MEDS: CARVEDILOL 12.5 MG TAB PO SCH ×2 (09:17→23:19)
[2021-08-06 09:18] VITALS: BP 109/50
[2021-08-06] MEDS: FUROSEMIDE 20 MG/2 ML VIAL IV SCH (09:29)
[2021-08-06 13:00] VITALS: BP 107/44
[2021-08-06 17:00] VITALS: BP 137/70
[2021-08-06 22:00] VITALS: BP 121/47
[2021-08-07 05:00] VITALS: BP 127/61
[2021-08-07] MEDS: ACCU-CHEK COMFORT CURVE STRIP VI SCH ×4 (06:13→22:04)
[2021-08-07] MEDS: LEVOTHYROXINE SODIUM 100 MCG TAB PO SCH (06:13)
[2021-08-07] MEDS: SODIUM CHLOR 0.9% PF (SALINE LOCK) 10ML VIAL/SYR IV SCH ×3 (06:13→22:03)
[2021-08-07] MEDS: InsuLIN REG 1unit/0.01ml Soln (100units/ml) SC SCH ×4 (06:13→22:00)
[2021-08-07 06:34] LABS: Basophils # (auto) 0 10 ^3/uL (0-0.2); Basophils % (auto) 0.5 % (0.0-2.0); Eosinophils # (auto) 0.2 10 ^3/uL (0-0.8); Eosinophils % (auto) 3.9 % (0.0-7.0); Hematocrit 37.3 % (36.0-46.0); Lymphocytes # (auto) 1.5 10 ^3/uL (0.4-5.4); Lymphocytes % (auto) 25.8 % (10.0-50.0); Mean Corpuscular Hemoglobin 29.7 pg (28.0-32.0); Mean Corpuscular Hgb Conc. 34.8 g/dL (32.0-36.0); Mean Corpuscular Volume 85.5 fL (80.0-100.0); Monocytes # (auto) 0.4 10 ^3/uL (0-1.3); Monocytes % (auto) 7.2 % (0.0-12.0); Neutrophils # (auto) 3.7 10 ^3/uL (1.6-8.6); Neutrophils % (auto) 62.6 % (37.0-80.0); Nucleated Red Blood Cells % 0.1 %; Red Blood Cells 4.37 10^6/uL (4.0-5.20); Red Cell Distribution Width 14.1 % (11.8-14.3)
[2021-08-07 06:54] LABS: BUN/Creatinine Ratio 30.8; Potassium 3.9 mmol/L (3.5-5.1)
[2021-08-07] MEDS ORDERED: ADENOSINE 74 MG in GIVE UN-DILUTED 0 ML IV ONE (07:30)
[2021-08-07 09:00] VITALS: BP 133/59
[2021-08-07] MEDS: CARVEDILOL 12.5 MG TAB PO SCH ×2 (10:00→22:03)
[2021-08-07 13:00] VITALS: BP 133/52
[2021-08-07] MEDS: ASPirin 81 mg TAB PO SCH (16:39)
[2021-08-07] MEDS: FUROSEMIDE 20 MG/2 ML VIAL IV SCH (16:40)
[2021-08-07 17:00] VITALS: BP 140/76
[2021-08-07 22:00] VITALS: BP 118/71
[2021-08-08 05:00] VITALS: BP 150/68
[2021-08-08] MEDS: LEVOTHYROXINE SODIUM 100 MCG TAB PO SCH (06:21)
[2021-08-08] MEDS: SODIUM CHLOR 0.9% PF (SALINE LOCK) 10ML VIAL/SYR IV SCH ×3 (06:21→22:00)
[2021-08-08] MEDS: InsuLIN REG 1unit/0.01ml Soln (100units/ml) SC SCH ×4 (06:21→21:59)
[2021-08-08] MEDS: ACCU-CHEK COMFORT CURVE STRIP VI SCH ×4 (06:21→21:59)
[2021-08-08 09:00] VITALS: BP 124/70
[2021-08-08] MEDS: ASPirin 81 mg TAB PO SCH (10:19)
[2021-08-08] MEDS: CARVEDILOL 12.5 MG TAB PO SCH ×2 (10:20→21:58)
[2021-08-08] MEDS: FUROSEMIDE 20 MG/2 ML VIAL IV SCH (10:21)
[2021-08-08 12:48] VITALS: BP 105/69
[2021-08-08 16:51] VITALS: BP 111/68
[2021-08-08 22:00] VITALS: BP 132/62
[2021-08-09 05:00] VITALS: BP 103/41
[2021-08-09] MEDS: LEVOTHYROXINE SODIUM 100 MCG TAB PO SCH (05:21)
[2021-08-09] MEDS: InsuLIN REG 1unit/0.01ml Soln (100units/ml) SC SCH ×2 (05:23→11:30)
[2021-08-09] MEDS: ACCU-CHEK COMFORT CURVE STRIP VI SCH ×2 (05:53→11:30)
[2021-08-09] MEDS: SODIUM CHLOR 0.9% PF (SALINE LOCK) 10ML VIAL/SYR IV SCH (05:53)
[2021-08-09 08:56] VITALS: BP 111/49
[2021-08-09] MEDS: ASPirin 81 mg TAB PO SCH (09:34)
[2021-08-09] MEDS: CARVEDILOL 12.5 MG TAB PO SCH (09:35)
[2021-08-09] MEDS: FUROSEMIDE 20 MG/2 ML VIAL IV SCH (09:35)
[2021-08-09 11:31] LABS: Basophils # (auto) 0 10 ^3/uL (0-0.2); Basophils % (auto) 0.4 % (0.0-2.0); Eosinophils # (auto) 0.1 10 ^3/uL (0-0.8); Eosinophils % (auto) 2.1 % (0.0-7.0); Hematocrit 40.8 % (36.0-46.0); Hemoglobin 13.9 g/dL (12.2-16.2); Lymphocytes # (auto) 1.6 10 ^3/uL (0.4-5.4); Lymphocytes % (auto) 22.5 % (10.0-50.0); Mean Corpuscular Hemoglobin 29.1 pg (28.0-32.0); Mean Corpuscular Hgb Conc. 34.2 g/dL (32.0-36.0); Mean Corpuscular Volume 85.3 fL (80.0-100.0); Monocytes # (auto) 0.5 10 ^3/uL (0-1.3); Neutrophils # (auto) 4.7 10 ^3/uL (1.6-8.6); Nucleated Red Blood Cells % 0.1 %; Red Blood Cells 4.78 10^6/uL (4.0-5.20); Red Cell Distribution Width 13.9 % (11.8-14.3); White Blood Cell 6.9 10^3/uL (4.4-10.8)
[2021-08-09 11:49] LABS: INR 1.11 (0.9-1.15); Partial Thromboplastin Time 27.9 sec (23.6-33.0)
[2021-08-09 12:10] LABS: Anion Gap 10 (5-15); BUN/Creatinine Ratio 37.3; Blood Urea Nitrogen 44 mg/dL (7-18); Calcium 8.8 mg/dL (8.5-10.1); Carbon Dioxide 26 mmol/L (21-32); Chloride 102 mmol/L (98-107); GFR African American 57 mL/min; GFR Non-African American 47 mL/min; Glucose 149 mg/dL (74-106); Potassium 3.8 mmol/L (3.5-5.1); Sodium 138 mmol/L (136-145)
[2021-08-09 12:55] VITALS: BP 129/55
[2021-08-09] MEDS ORDERED: HEPARIN IN NS 1000Units/500mL 0 ML ONE (14:07)
[2021-08-09] MEDS ORDERED: IODIXANOL 320MG/ML 100ML BTL IV ONE (14:07)
[2021-08-09] MEDS ORDERED: LIDOCAINE 2%HCL (LOCAL ANESTH.) INJ 10ml MDV ONE (14:07)
[2021-08-09] MEDS ORDERED: ATOR20TA50 PO (14:48)
[2021-08-09] MEDS ORDERED: ASPI-325 PO (14:48)
[2021-08-09 16:35] VITALS: BP 111/47
== END 2021-08-09 18:35 | disposition home or self-care (01) | DRG 291 ==
LOC: ER 18:54 → TELE-WESTW 23:37
PROVIDERS: ADMIT Nurse Practitioner Family; ATTEND Internal Medicine Pulmonary Disease
DX: I11.0 Hypertensive heart disease with heart failure (principal); I50.31 Acute diastolic (congestive) heart failure; E11.65 Type 2 diabetes mellitus with hyperglycemia; M79.89 Other specified soft tissue disorders; E66.9 Obesity, unspecified; Z82.49 Family history of ischemic heart disease and other diseases of the circulatory system; Z86.73 Personal history of transient ischemic attack (TIA), and cerebral infarction without residual deficits; Z68.29 Body mass index [BMI] 29.0-29.9, adult; Z20.822 Contact with and (suspected) exposure to COVID-19; Z79.84 Long term (current) use of oral hypoglycemic drugs
CPT/HCPCS: 36415; 71046; 78452; 80048; 80053; 82962; 83036; 83735; 83880; 84443; 84484; 85025; 85379; 85610; 85730; 93005; 93017; 93306; 93970; G0378; J0153; J1815; J2001; Q9967

== ENCOUNTER 2021-12-01 08:15 | Inpatient (IN) | payer OTHER ==
[~2021-12-01] VITALS: Ht 165.1 cm; Wt 92.9 kg
[~2021-12-01 08:15] MED LIST changes: +ASPI-325 PO; +ATOR20TA50 PO
[2021-12-01 09:32] LABS: Basophils # (auto) 0 10 ^3/uL (0-0.2); Basophils % (auto) 0.2 % (0.0-2.0); Eosinophils # (auto) 0.1 10 ^3/uL (0-0.8); Eosinophils % (auto) 0.4 % (0.0-7.0); Hematocrit 40.3 % (36.0-46.0); Lymphocytes # (auto) 1.3 10 ^3/uL (0.4-5.4); Lymphocytes % (auto) 9.4 % (10.0-50.0); Mean Corpuscular Hgb Conc. 32.3 g/dL (32.0-36.0); Mean Corpuscular Volume 86.8 fL (80.0-100.0); Monocytes # (auto) 0.3 10 ^3/uL (0-1.3); Monocytes % (auto) 2.5 % (0.0-12.0); Neutrophils # (auto) 11.8 10 ^3/uL (1.6-8.6); Neutrophils % (auto) 87.5 % (37.0-80.0); Nucleated Red Blood Cells % 0.1 %; Red Blood Cells 4.65 10^6/uL (4.0-5.20); Red Cell Distribution Width 14.3 % (11.8-14.3); White Blood Cell 13.5 10^3/uL (4.4-10.8)
[2021-12-01 09:39] LABS: Albumin 3.5 g/dL (3.4-5.0); Calcium 9.1 mg/dL (8.5-10.1); Potassium 3.7 mmol/L (3.5-5.1)
[2021-12-01 09:43] LABS: BUN/Creatinine Ratio 24.6
[2021-12-01] MEDS ORDERED: SODIUM CHLORIDE 0.9% 500 ML IVB ONE (10:45)
[2021-12-01] MEDS ORDERED: ONDANSETRON HCL 4 MG/2 ML VIAL IV ONE (10:45)
[2021-12-01] MEDS ORDERED: SODIUM CHLORIDE 0.9% 1,000 ML IV ONE (10:45)
[2021-12-01 11:30] LABS: Lipase > 30000 U/L (73-393)
[2021-12-01] MEDS ORDERED: METOCLOPRAMIDE HCL 5MG/ml INJ 2ml VIAL IV ONE (12:30)
[2021-12-01] MEDS ORDERED: HYDROmorphone HCL 2 MG/ML VL/or syr IV ONE (12:30)
[2021-12-01] MEDS ORDERED: SODIUM CHLORIDE 0.9% 1,000 ML IVB ONE (12:30)
[2021-12-01] MEDS ORDERED: HYDROcodone-ACET 5/325MG TAB PO PRN (14:00)
[2021-12-01] MEDS ORDERED: DOCUSATE SOD 100 MG CAP PO PRN (14:00)
[2021-12-01] MEDS ORDERED: ONDANSETRON HCL 4 MG/2 ML VIAL IV PRN (14:00)
[2021-12-01] MEDS ORDERED: MORPHINE SULFATE INJ 2 MG/ml SYRG IV PRN (14:00)
[2021-12-01] MEDS ORDERED: ACETAMINOPHEN 325 MG TAB PO PRN (14:00)
[2021-12-01] MEDS: metroNIDAZOLE 500MG/100ML 100 ML IV SCH ×2 (14:40→22:28)
[2021-12-01] MEDS ORDERED: D5W 5% 1,000 ML IV ONE (15:00)
[2021-12-01] MEDS ORDERED: DEXTROSE (50%) 50ML SYRG IV PRN (15:15)
[2021-12-01] MEDS: SODIUM CHLORIDE 0.9% 1,000 ML IV SCH (16:44)
[2021-12-01] MEDS: ACCU-CHEK COMFORT CURVE STRIP VI SCH (17:00)
[2021-12-01] MEDS: InsuLIN REG 1unit/0.01ml Soln (100units/ml) SC SCH (17:00)
[2021-12-01] MEDS: METOPROLOL TARTRATE 25 MG TAB PO SCH (22:39)
[2021-12-02] MEDS: InsuLIN REG 1unit/0.01ml Soln (100units/ml) SC SCH ×5 (02:41→22:00)
[2021-12-02] MEDS: ACCU-CHEK COMFORT CURVE STRIP VI SCH ×5 (02:42→22:25)
[2021-12-02] MEDS: SODIUM CHLORIDE 0.9% 1,000 ML IV SCH ×2 (03:03→07:15)
[2021-12-02 06:44] LABS: Albumin 3.1 g/dL (3.4-5.0); BUN/Creatinine Ratio 35.9; Calcium 8.2 mg/dL (8.5-10.1); Potassium 3.9 mmol/L (3.5-5.1)
[2021-12-02 06:47] LABS: Bilirubin, Total 1.8 mg/dL (0.2-1.0); Total Protein 6.7 g/dL (6.4-8.2)
[2021-12-02 06:49] LABS: Basophils # (auto) 0 10 ^3/uL (0-0.2); Basophils % (auto) 0.2 % (0.0-2.0); Eosinophils # (auto) 0 10 ^3/uL (0-0.8); Eosinophils % (auto) 0.3 % (0.0-7.0); Hematocrit 36.9 % (36.0-46.0); Hemoglobin 12.3 g/dL (12.2-16.2); Lymphocytes # (auto) 0.8 10 ^3/uL (0.4-5.4); Lymphocytes % (auto) 7.5 % (10.0-50.0); Mean Corpuscular Hemoglobin 28.5 pg (28.0-32.0); Mean Corpuscular Hgb Conc. 33.3 g/dL (32.0-36.0); Mean Corpuscular Volume 85.6 fL (80.0-100.0); Monocytes # (auto) 0.4 10 ^3/uL (0-1.3); Monocytes % (auto) 4.1 % (0.0-12.0); Neutrophils # (auto) 9.1 10 ^3/uL (1.6-8.6); Neutrophils % (auto) 87.9 % (37.0-80.0); Nucleated Red Blood Cells % 0.1 %; Red Blood Cells 4.31 10^6/uL (4.0-5.20); Red Cell Distribution Width 14.2 % (11.8-14.3); White Blood Cell 10.3 10^3/uL (4.4-10.8)
[2021-12-02] MEDS: metroNIDAZOLE 500MG/100ML 100 ML IV SCH ×3 (09:41→22:32)
[2021-12-02] MEDS: ENOXAPARIN SOD 40 MG/0.4 ML SYRINGE SC SCH (10:00)
[2021-12-02] MEDS: LEVOTHYROXINE SODIUM 100 MCG TAB PO SCH (10:00)
[2021-12-02] MEDS: ATORVASTATIN 20 MG TAB PO SCH (10:31)
[2021-12-02] MEDS: ASPirin 81 mg TAB PO SCH (10:32)
[2021-12-02] MEDS: METOPROLOL TARTRATE 25 MG TAB PO SCH ×2 (10:43→22:32)
[2021-12-02 17:00] VITALS: BP 120/67
[2021-12-02] MEDS: LACTATED RINGER'S 1,000 ML IV SCH (17:00)
[2021-12-02 22:00] VITALS: BP 136/69
[2021-12-03] MEDS: LACTATED RINGER'S 1,000 ML IV SCH ×4 (01:18→20:00)
[2021-12-03 05:00] VITALS: BP 115/71
[2021-12-03] MEDS: metroNIDAZOLE 500MG/100ML 100 ML IV SCH ×3 (05:14→21:54)
[2021-12-03] MEDS: ACCU-CHEK COMFORT CURVE STRIP VI SCH ×4 (05:59→22:28)
[2021-12-03] MEDS: InsuLIN REG 1unit/0.01ml Soln (100units/ml) SC SCH ×4 (06:00→22:00)
[2021-12-03 09:00] VITALS: BP 131/69
[2021-12-03] MEDS: ASPirin 81 mg TAB PO SCH (09:33)
[2021-12-03] MEDS: ATORVASTATIN 20 MG TAB PO SCH (09:33)
[2021-12-03] MEDS: METOPROLOL TARTRATE 25 MG TAB PO SCH ×2 (09:34→22:03)
[2021-12-03] MEDS: LEVOTHYROXINE SODIUM 100 MCG TAB PO SCH (09:34)
[2021-12-03] MEDS: ENOXAPARIN SOD 40 MG/0.4 ML SYRINGE SC SCH (09:35)
[2021-12-03 13:00] VITALS: BP 117/60
[2021-12-03 16:55] VITALS: BP 132/62
[2021-12-03 22:00] VITALS: BP 153/76
[2021-12-04] MEDS: LACTATED RINGER'S 1,000 ML IV SCH ×3 (04:00→20:00)
[2021-12-04 05:00] VITALS: BP 137/64
[2021-12-04] MEDS: metroNIDAZOLE 500MG/100ML 100 ML IV SCH ×3 (05:54→21:47)
[2021-12-04] MEDS: InsuLIN REG 1unit/0.01ml Soln (100units/ml) SC SCH ×4 (05:55→21:46)
[2021-12-04] MEDS: ACCU-CHEK COMFORT CURVE STRIP VI SCH ×4 (05:55→21:41)
[2021-12-04 09:00] VITALS: BP 141/77
[2021-12-04] MEDS: ENOXAPARIN SOD 40 MG/0.4 ML SYRINGE SC SCH (10:00)
[2021-12-04] MEDS: ASPirin 81 mg TAB PO SCH (10:54)
[2021-12-04] MEDS: LEVOTHYROXINE SODIUM 100 MCG TAB PO SCH (10:55)
[2021-12-04] MEDS: METOPROLOL TARTRATE 25 MG TAB PO SCH ×2 (10:55→21:48)
[2021-12-04] MEDS: PANTOPRAZOLE 40 MG TAB PO SCH ×2 (10:55→21:48)
[2021-12-04 13:00] VITALS: BP 139/57
[2021-12-04 13:28] LABS: INR 1.22 (0.9-1.15)
[2021-12-04 17:00] VITALS: BP 135/66
[2021-12-04 22:00] VITALS: BP 158/70
[2021-12-04] MEDS ORDERED: ATORVASTATIN 20 MG TAB PO SCH (22:00)
[2021-12-05] MEDS: LACTATED RINGER'S 1,000 ML IV SCH ×2 (04:00→12:47)
[2021-12-05 05:09] VITALS: BP 154/70
[2021-12-05] MEDS: ACCU-CHEK COMFORT CURVE STRIP VI SCH ×2 (05:46→12:47)
[2021-12-05] MEDS: metroNIDAZOLE 500MG/100ML 100 ML IV SCH ×2 (05:47→14:19)
[2021-12-05] MEDS: LEVOTHYROXINE SODIUM 100 MCG TAB PO SCH ×2 (05:47→05:48)
[2021-12-05] MEDS: InsuLIN REG 1unit/0.01ml Soln (100units/ml) SC SCH ×2 (05:56→12:57)
[2021-12-05 06:00] VITALS: BP 149/71
[2021-12-05 06:06] LABS: Basophils # (auto) 0 10 ^3/uL (0-0.2); Basophils % (auto) 0.2 % (0.0-2.0); Eosinophils # (auto) 0.1 10 ^3/uL (0-0.8); Eosinophils % (auto) 2.5 % (0.0-7.0); Hematocrit 35.3 % (36.0-46.0); Lymphocytes # (auto) 0.9 10 ^3/uL (0.4-5.4); Mean Corpuscular Hemoglobin 28.8 pg (28.0-32.0); Mean Corpuscular Volume 84.6 fL (80.0-100.0); Monocytes # (auto) 0.4 10 ^3/uL (0-1.3); Neutrophils % (auto) 73.3 % (37.0-80.0); Nucleated Red Blood Cells % 0.1 %; Red Blood Cells 4.17 10^6/uL (4.0-5.20); Red Cell Distribution Width 13.7 % (11.8-14.3); White Blood Cell 5.5 10^3/uL (4.4-10.8)
[2021-12-05 09:00] VITALS: BP 131/68
[2021-12-05] MEDS ORDERED: PANT40T PO (09:36)
[2021-12-05] MEDS: ENOXAPARIN SOD 40 MG/0.4 ML SYRINGE SC SCH (10:00)
[2021-12-05] MEDS: METOPROLOL TARTRATE 25 MG TAB PO SCH (10:03)
[2021-12-05] MEDS: ASPirin 81 mg TAB PO SCH (10:04)
[2021-12-05] MEDS: PANTOPRAZOLE 40 MG TAB PO SCH (10:04)
[2021-12-05 12:05] VITALS: BP 131/68
[2021-12-05 13:00] VITALS: BP 144/72
== END 2021-12-05 15:45 | disposition home or self-care (01) | DRG 439 ==
LOC: ER 08:15 → OVERFLOW 14:03 → EAST 12-02 18:11
PROVIDERS: ADMIT Internal Medicine; ATTEND Family Medicine
DX: K85.90 Acute pancreatitis without necrosis or infection, unspecified (principal); N17.9 Acute kidney failure, unspecified; R65.10 Systemic inflammatory response syndrome (SIRS) of non-infectious origin without acute organ dysfunction; E03.9 Hypothyroidism, unspecified; K74.60 Unspecified cirrhosis of liver; M47.816 Spondylosis without myelopathy or radiculopathy, lumbar region; E11.65 Type 2 diabetes mellitus with hyperglycemia; E86.1 Hypovolemia; E78.5 Hyperlipidemia, unspecified; I10 Essential (primary) hypertension; R74.01 Elevation of levels of liver transaminase levels; Z20.822 Contact with and (suspected) exposure to COVID-19; E11.21 Type 2 diabetes mellitus with diabetic nephropathy; E11.40 Type 2 diabetes mellitus with diabetic neuropathy, unspecified; E78.00 Pure hypercholesterolemia, unspecified; Z79.84 Long term (current) use of oral hypoglycemic drugs; Z79.899 Other long term (current) drug therapy
CPT/HCPCS: 36415; 74176; 76705; 80053; 82962; 83690; 83735; 84443; 85025; 85610; 93005; 96361; 96374; 96375; 97116; 97163; 97530; G0378; J1815; J2405; J3490

== ENCOUNTER 2022-02-17 05:49 | Inpatient (IN) | payer OTHER ==
[~2022-02-17] VITALS: Ht 157.5 cm; Wt 80.4 kg
[~2022-02-17 05:49] MED LIST changes: +PANT40T PO
[2022-02-17] MEDS ORDERED: SODIUM CHLORIDE 0.9% 1,000 ML IV ONE ×2 (07:30)
[2022-02-17] MEDS ORDERED: ONDANSETRON HCL 4 MG/2 ML VIAL IV ONE (08:30)
[2022-02-17] MEDS ORDERED: SODIUM CHLORIDE 0.9% 1,000 ML IVB ONE (08:30)
[2022-02-17 08:32] LABS: Basophils # (auto) 0 10 ^3/uL (0-0.2); Basophils % (auto) 0.1 % (0.0-2.0); Eosinophils # (auto) 0 10 ^3/uL (0-0.8); Eosinophils % (auto) 0.3 % (0.0-7.0); Hematocrit 40.4 % (36.0-46.0); Hemoglobin 13.2 g/dL (12.2-16.2); Lymphocytes # (auto) 0.6 10 ^3/uL (0.4-5.4); Lymphocytes % (auto) 6.4 % (10.0-50.0); Mean Corpuscular Hemoglobin 28.2 pg (28.0-32.0); Mean Corpuscular Hgb Conc. 32.6 g/dL (32.0-36.0); Mean Corpuscular Volume 86.3 fL (80.0-100.0); Monocytes # (auto) 0.4 10 ^3/uL (0-1.3); Monocytes % (auto) 3.6 % (0.0-12.0); Neutrophils # (auto) 8.8 10 ^3/uL (1.6-8.6); Neutrophils % (auto) 89.6 % (37.0-80.0); Nucleated Red Blood Cells % 0.1 %; Red Blood Cells 4.68 10^6/uL (4.0-5.20); Red Cell Distribution Width 14.6 % (11.8-14.3); White Blood Cell 9.9 10^3/uL (4.4-10.8)
[2022-02-17 08:38] LABS: Urine Bacteria NONE SEEN /hpf (None Seen); Urine Blood Negative /uL (Negative); Urine Specific Gravity 1.018 (1.001-1.035); Urine WBC 2 /hpf (0 - 5)
[2022-02-17 09:01] LABS: Albumin 3.9 g/dL (3.4-5.0); BUN/Creatinine Ratio 26.1; Bilirubin, Total 1.1 mg/dL (0.2-1.0); Calcium 9.3 mg/dL (8.5-10.1); Total Protein 8.4 g/dL (6.4-8.2)
[2022-02-17] MEDS ORDERED: ACETAMINOPHEN 325 MG TAB PO PRN (14:15)
[2022-02-17] MEDS ORDERED: KETOROLAC TROMETH 30 MG/ML 1ML VIAL IV ONE (14:15)
[2022-02-17] MEDS ORDERED: metroNIDAZOLE 500MG/100ML 100 ML IV ONE (14:15)
[2022-02-17] MEDS ORDERED: cefTRIAXone 1GM/50ML D5W 50 ML IV ONE (14:15)
[2022-02-17 15:03] LABS: Cholesterol 135 mg/dL (< 200); HDL Cholesterol 85 mg/dL (40-59); LDL Cholesterol 55 mg/dL (< 100); Triglycerides 67 mg/dL (< 150)
[2022-02-17] MEDS ORDERED: KETOROLAC TROMETH 30 MG/ML 1ML VIAL IV PRN (18:00)
[2022-02-17] MEDS: metroNIDAZOLE 500MG/100ML 100 ML IV SCH (22:00)
[2022-02-18] MEDS: SODIUM CHLORIDE 0.9% 1,000 ML IV SCH ×4 (04:33→21:40)
[2022-02-18 04:38] LABS: Basophils # (auto) 0 10 ^3/uL (0-0.2); Basophils % (auto) 0.4 % (0.0-2.0); Eosinophils # (auto) 0.1 10 ^3/uL (0-0.8); Eosinophils % (auto) 1.7 % (0.0-7.0); Hematocrit 37.3 % (36.0-46.0); Hemoglobin 12.6 g/dL (12.2-16.2); Lymphocytes # (auto) 0.9 10 ^3/uL (0.4-5.4); Lymphocytes % (auto) 13.3 % (10.0-50.0); Mean Corpuscular Hemoglobin 28.6 pg (28.0-32.0); Mean Corpuscular Hgb Conc. 33.8 g/dL (32.0-36.0); Mean Corpuscular Volume 84.5 fL (80.0-100.0); Monocytes # (auto) 0.3 10 ^3/uL (0-1.3); Monocytes % (auto) 4.7 % (0.0-12.0); Neutrophils # (auto) 5.1 10 ^3/uL (1.6-8.6); Neutrophils % (auto) 79.9 % (37.0-80.0); Nucleated Red Blood Cells % 0.1 %; Red Blood Cells 4.41 10^6/uL (4.0-5.20); Red Cell Distribution Width 14.4 % (11.8-14.3); White Blood Cell 6.4 10^3/uL (4.4-10.8)
[2022-02-18 04:55] LABS: Albumin 3.2 g/dL (3.4-5.0); Potassium 3.7 mmol/L (3.5-5.1)
[2022-02-18 05:00] LABS: BUN/Creatinine Ratio 24.3; Bilirubin, Total 1.3 mg/dL (0.2-1.0); Total Protein 7.3 g/dL (6.4-8.2)
[2022-02-18] MEDS: metroNIDAZOLE 500MG/100ML 100 ML IV SCH (05:46)
[2022-02-18] MEDS ORDERED: cefTRIAXone 1GM/50ML D5W 50 ML IV SCH (09:00)
[2022-02-18] MEDS: ENOXAPARIN SOD 40 MG/0.4 ML SYRINGE SC SCH (10:00)
[2022-02-18 13:59] VITALS: BP 149/83
[2022-02-18] MEDS ORDERED: FLUT250M2 INH (15:42)
[2022-02-18] MEDS ORDERED: AML5T PO (15:47)
[2022-02-18] MEDS ORDERED: ESCI-28 PO (15:51)
[2022-02-18] MEDS ORDERED: ALBUAER3 INH (15:52)
[2022-02-18] MEDS ORDERED: HYDROmorphone HCL 2 MG/ML VL/or syr IV PRN (18:00)
[2022-02-18] MEDS ORDERED: ESCI5TAB33 PO (19:54)
[2022-02-18] MEDS ORDERED: LEVO125T7 PO (20:28)
[2022-02-18 22:00] VITALS: BP 158/78
[2022-02-19 03:00] VITALS: BP 139/79
[2022-02-19 05:00] VITALS: BP 139/58
[2022-02-19] MEDS: SODIUM CHLORIDE 0.9% 1,000 ML IV SCH ×3 (05:34→18:10)
[2022-02-19 06:23] LABS: Basophils # (auto) 0 10 ^3/uL (0-0.2); Basophils % (auto) 0.5 % (0.0-2.0); Eosinophils # (auto) 0.2 10 ^3/uL (0-0.8); Eosinophils % (auto) 4.7 % (0.0-7.0); Hematocrit 33.4 % (36.0-46.0); Hemoglobin 11.2 g/dL (12.2-16.2); Lymphocytes % (auto) 19.6 % (10.0-50.0); Mean Corpuscular Hemoglobin 28.3 pg (28.0-32.0); Mean Corpuscular Hgb Conc. 33.4 g/dL (32.0-36.0); Mean Corpuscular Volume 84.7 fL (80.0-100.0); Monocytes # (auto) 0.3 10 ^3/uL (0-1.3); Monocytes % (auto) 5.7 % (0.0-12.0); Neutrophils # (auto) 3.5 10 ^3/uL (1.6-8.6); Neutrophils % (auto) 69.5 % (37.0-80.0); Nucleated Red Blood Cells % 0.1 %; Red Blood Cells 3.94 10^6/uL (4.0-5.20); Red Cell Distribution Width 14.4 % (11.8-14.3)
[2022-02-19 06:35] LABS: Albumin 2.8 g/dL (3.4-5.0); BUN/Creatinine Ratio 14.7; Calcium 8.4 mg/dL (8.5-10.1); Potassium 3.8 mmol/L (3.5-5.1)
[2022-02-19 06:38] LABS: Total Protein 6.3 g/dL (6.4-8.2)
[2022-02-19 09:13] VITALS: BP 156/80
[2022-02-19] MEDS: ENOXAPARIN SOD 40 MG/0.4 ML SYRINGE SC SCH (09:42)
[2022-02-19 13:23] VITALS: BP 135/63
[2022-02-19 17:21] VITALS: BP 158/73
[2022-02-19] MEDS ORDERED: hydrALAZINE HCL 20 MG/ML VL IV PRN (18:15)
[2022-02-19 22:00] VITALS: BP 163/75
[2022-02-20 05:00] VITALS: BP 156/69
[2022-02-20] MEDS: SODIUM CHLORIDE 0.9% 1,000 ML IV SCH ×2 (05:10→07:00)
[2022-02-20 06:14] LABS: Basophils # (auto) 0 10 ^3/uL (0-0.2); Basophils % (auto) 0.4 % (0.0-2.0); Eosinophils # (auto) 0.2 10 ^3/uL (0-0.8); Eosinophils % (auto) 4.2 % (0.0-7.0); Hematocrit 33.5 % (36.0-46.0); Hemoglobin 11.3 g/dL (12.2-16.2); Lymphocytes # (auto) 0.9 10 ^3/uL (0.4-5.4); Lymphocytes % (auto) 21.5 % (10.0-50.0); Mean Corpuscular Hemoglobin 28.4 pg (28.0-32.0); Mean Corpuscular Hgb Conc. 33.8 g/dL (32.0-36.0); Mean Corpuscular Volume 83.8 fL (80.0-100.0); Monocytes # (auto) 0.2 10 ^3/uL (0-1.3); Monocytes % (auto) 5.8 % (0.0-12.0); Neutrophils # (auto) 2.9 10 ^3/uL (1.6-8.6); Neutrophils % (auto) 68.1 % (37.0-80.0); Nucleated Red Blood Cells % 0.1 %; Red Cell Distribution Width 13.8 % (11.8-14.3); White Blood Cell 4.2 10^3/uL (4.4-10.8)
[2022-02-20 06:28] LABS: Calcium 8.7 mg/dL (8.5-10.1); INR 1.21 (0.9-1.15); Partial Thromboplastin Time 28.9 sec (24.6-33.4); Potassium 3.5 mmol/L (3.5-5.1)
[2022-02-20 06:31] LABS: BUN/Creatinine Ratio 11.3; Bilirubin, Total 1.3 mg/dL (0.2-1.0); Total Protein 7.2 g/dL (6.4-8.2)
[2022-02-20 09:00] VITALS: BP 153/65
[2022-02-20] MEDS: ENOXAPARIN SOD 40 MG/0.4 ML SYRINGE SC SCH (10:00)
[2022-02-20] MEDS ORDERED: hydrALAZINE HCL 20 MG/ML VL IV ONE (11:45)
[2022-02-20] MEDS ORDERED: LEVOTHYROXINE SODIUM 50 MCG TAB PO ONE (12:00)
[2022-02-20] MEDS ORDERED: LISINOPRIL 20 MG TAB PO ONE (12:00)
[2022-02-20] MEDS ORDERED: amLODIPine BESYLATE 5 MG TAB PO ONE (12:00)
[2022-02-20 13:00] VITALS: BP 157/73
[2022-02-20 17:00] VITALS: BP 156/76
[2022-02-20 22:00] VITALS: BP 137/67
[2022-02-21 05:00] VITALS: BP 120/48
[2022-02-21 05:10] LABS: Basophils # (auto) 0 10 ^3/uL (0-0.2); Basophils % (auto) 0.6 % (0.0-2.0); Eosinophils # (auto) 0.2 10 ^3/uL (0-0.8); Eosinophils % (auto) 4.1 % (0.0-7.0); Hematocrit 35.7 % (36.0-46.0); Hemoglobin 11.8 g/dL (12.2-16.2); Lymphocytes # (auto) 1.3 10 ^3/uL (0.4-5.4); Lymphocytes % (auto) 23.6 % (10.0-50.0); Mean Corpuscular Volume 84.8 fL (80.0-100.0); Monocytes # (auto) 0.3 10 ^3/uL (0-1.3); Monocytes % (auto) 5.7 % (0.0-12.0); Neutrophils # (auto) 3.7 10 ^3/uL (1.6-8.6); Nucleated Red Blood Cells % 0.1 %; Red Blood Cells 4.21 10^6/uL (4.0-5.20); Red Cell Distribution Width 14.2 % (11.8-14.3); White Blood Cell 5.6 10^3/uL (4.4-10.8)
[2022-02-21 05:39] LABS: Calcium 8.9 mg/dL (8.5-10.1); Potassium 3.7 mmol/L (3.5-5.1)
[2022-02-21 05:43] LABS: Albumin 2.9 g/dL (3.4-5.0); BUN/Creatinine Ratio 18.3
[2022-02-21 05:58] LABS: Bilirubin, Total 1.3 mg/dL (0.2-1.0); Total Protein 7.3 g/dL (6.4-8.2)
[2022-02-21] MEDS: LEVOTHYROXINE SODIUM 50 MCG TAB PO SCH (06:23)
[2022-02-21 08:58] LABS: Hepatitis B Surface Antibody Negative (Negative)
[2022-02-21 09:00] VITALS: BP 122/68
[2022-02-21 09:34] LABS: Hepatitis A Total Antibody Positive (Negative)
[2022-02-21] MEDS: amLODIPine BESYLATE 5 MG TAB PO SCH (09:40)
[2022-02-21] MEDS: LISINOPRIL 20 MG TAB PO SCH (09:42)
[2022-02-21] MEDS: ENOXAPARIN SOD 40 MG/0.4 ML SYRINGE SC SCH (09:42)
[2022-02-21 12:34] LABS: Hepatitis C Antibody Negative (Negative)
[2022-02-21 13:00] VITALS: BP 150/75
[2022-02-21 16:38] VITALS: BP 167/82
[2022-02-21 22:00] VITALS: BP 153/67
[2022-02-22 05:10] VITALS: BP 136/71
[2022-02-22 05:15] LABS: Basophils # (auto) 0 10 ^3/uL (0-0.2); Basophils % (auto) 0.3 % (0.0-2.0); Eosinophils # (auto) 0.2 10 ^3/uL (0-0.8); Eosinophils % (auto) 3.5 % (0.0-7.0); Hematocrit 37.1 % (36.0-46.0); Hemoglobin 12.4 g/dL (12.2-16.2); Lymphocytes # (auto) 1.5 10 ^3/uL (0.4-5.4); Lymphocytes % (auto) 26.8 % (10.0-50.0); Mean Corpuscular Hemoglobin 28.3 pg (28.0-32.0); Mean Corpuscular Hgb Conc. 33.3 g/dL (32.0-36.0); Mean Corpuscular Volume 84.9 fL (80.0-100.0); Monocytes # (auto) 0.3 10 ^3/uL (0-1.3); Monocytes % (auto) 6.1 % (0.0-12.0); Neutrophils # (auto) 3.6 10 ^3/uL (1.6-8.6); Neutrophils % (auto) 63.3 % (37.0-80.0); Red Blood Cells 4.37 10^6/uL (4.0-5.20); White Blood Cell 5.7 10^3/uL (4.4-10.8)
[2022-02-22 05:30] LABS: Albumin 3.3 g/dL (3.4-5.0); Calcium 9.1 mg/dL (8.5-10.1); Potassium 3.7 mmol/L (3.5-5.1)
[2022-02-22 05:35] LABS: BUN/Creatinine Ratio 21.8; Bilirubin, Total 1.2 mg/dL (0.2-1.0); Total Protein 7.7 g/dL (6.4-8.2)
[2022-02-22] MEDS: LEVOTHYROXINE SODIUM 50 MCG TAB PO SCH (06:46)
[2022-02-22 08:00] VITALS: BP 165/72
[2022-02-22 12:00] VITALS: BP 148/74
[2022-02-22] MEDS: amLODIPine BESYLATE 5 MG TAB PO SCH (12:29)
[2022-02-22] MEDS: LISINOPRIL 20 MG TAB PO SCH (12:30)
[2022-02-22] MEDS: ENOXAPARIN SOD 40 MG/0.4 ML SYRINGE SC SCH (12:31)
== END 2022-02-22 18:00 | disposition home or self-care (01) | DRG 439 ==
LOC: ER 05:49 → OVERFLOW 14:01 → TELE-E-ADS 02-18 15:35 → EAST 02-18 18:34 → CENTRAL 02-18 20:45
PROVIDERS: ADMIT Nurse Practitioner Family; ATTEND Student in an Organized Health Care Education/Training Program
DX: K85.10 Biliary acute pancreatitis without necrosis or infection (principal); K76.6 Portal hypertension; K80.20 Calculus of gallbladder without cholecystitis without obstruction; K52.9 Noninfective gastroenteritis and colitis, unspecified; E78.5 Hyperlipidemia, unspecified; I10 Essential (primary) hypertension; E66.01 Morbid (severe) obesity due to excess calories; D69.6 Thrombocytopenia, unspecified; E11.65 Type 2 diabetes mellitus with hyperglycemia; E07.9 Disorder of thyroid, unspecified; Z20.822 Contact with and (suspected) exposure to COVID-19; R16.1 Splenomegaly, not elsewhere classified; K74.60 Unspecified cirrhosis of liver; Z80.1 Family history of malignant neoplasm of trachea, bronchus and lung; Z82.49 Family history of ischemic heart disease and other diseases of the circulatory system; Z68.30 Body mass index [BMI] 30.0-30.9, adult; Z79.84 Long term (current) use of oral hypoglycemic drugs
CPT/HCPCS: 36415; 71045; 74176; 74181; 76705; 80053; 80061; 81001; 82150; 82728; 82962; 83036; 83690; 84443; 84484; 85025; 85610; 85730; 86038; 86704; 86706; 86708; 86803; 87340; 87426; 93005; 96361; 96365; 96375; G0378; J0696; J1885; J2405; J3490

== ENCOUNTER 2022-07-12 11:10 | Inpatient (IN) | payer OTHER ==
[~2022-07-12] VITALS: Ht 162.6 cm; Wt 82.5 kg
[~2022-07-12 11:10] MED LIST changes: +ALBUAER3 INH; +AML5T PO; -BENZ100C19 PO; -DOXY-286 PO; +ESCI5TAB33 PO; +FLUT250M2 INH; -GLIP5TAB12 PO; -LEVO100T8 PO; +LEVO125T7 PO; -MET25T PO
[2022-07-12 11:49] LABS: Basophils # (auto) 0 10 ^3/uL (0-0.2); Basophils % (auto) 0.4 % (0.0-2.0); Eosinophils # (auto) 0.1 10 ^3/uL (0-0.8); Eosinophils % (auto) 2.7 % (0.0-7.0); Hematocrit 35.5 % (36.0-46.0); Hemoglobin 11.9 g/dL (12.2-16.2); Lymphocytes % (auto) 21.6 % (10.0-50.0); Mean Corpuscular Hemoglobin 28.5 pg (28.0-32.0); Mean Corpuscular Hgb Conc. 33.6 g/dL (32.0-36.0); Monocytes # (auto) 0.5 10 ^3/uL (0-1.3); Monocytes % (auto) 10.3 % (0.0-12.0); Nucleated Red Blood Cells % 0.1 %; Red Blood Cells 4.18 10^6/uL (4.0-5.20); Red Cell Distribution Width 14.1 % (11.8-14.3); White Blood Cell 4.6 10^3/uL (4.4-10.8)
[2022-07-12 12:40] LABS: Albumin 3.3 g/dL (3.4-5.0); Anion Gap 8 (5-15); Blood Urea Nitrogen 15 mg/dL (7-18); Calcium 8.5 mg/dL (8.5-10.1); Carbon Dioxide 24 mmol/L (21-32); Chloride 108 mmol/L (98-107); Glucose 126 mg/dL (74-106); Potassium 3.6 mmol/L (3.5-5.1); Sodium 140 mmol/L (136-145)
[2022-07-12 12:44] LABS: Alanine Aminotransferase 20 U/L (13-56); Alkaline Phosphatase 104 U/L (45-117); Aspartate Aminotransferase 28 U/L (15-37); BUN/Creatinine Ratio 17.9 (10.0-20.0); Bilirubin, Total 0.9 mg/dL (0.2-1.0); GFR African American 84 mL/min; GFR Non-African American 70 mL/min; Total Protein 7.5 g/dL (6.4-8.2)
[2022-07-12] MEDS ORDERED: DEXTROSE (50%) 50ML SYRG IV PRN (19:45)
[2022-07-12] MEDS: InsuLIN REG 1unit/0.01ml Soln (100units/ml) SC SCH (22:18)
[2022-07-12] MEDS: ACCU-CHEK COMFORT CURVE STRIP VI SCH (22:18)
[2022-07-12] MEDS: PANTOPRAZOLE 40 MG TAB PO SCH (22:18)
[2022-07-13] VITALS (7 sets, daily range): BP systolic 94–157; BP diastolic 45–81
[2022-07-13] MEDS: FUROSEMIDE 40 MG/4 ML VIAL IV SCH ×2 (05:58→17:33)
[2022-07-13] MEDS: LEVOTHYROXINE SODIUM 50 MCG TAB PO SCH (05:58)
[2022-07-13] MEDS: InsuLIN REG 1unit/0.01ml Soln (100units/ml) SC SCH ×4 (05:58→21:49)
[2022-07-13] MEDS: ACCU-CHEK COMFORT CURVE STRIP VI SCH ×4 (06:42→21:48)
[2022-07-13] MEDS ORDERED: ENOXAPARIN SOD 40 MG/0.4 ML SYRINGE SC SCH (10:00)
[2022-07-13] MEDS ORDERED: ATORVASTATIN 20 MG TAB PO SCH (10:00)
[2022-07-13] MEDS: ASPirin-EC 81 mg tab PO SCH (10:08)
[2022-07-13] MEDS: PANTOPRAZOLE 40 MG TAB PO SCH ×2 (10:08→21:48)
[2022-07-13] MEDS: LISINOPRIL 20 MG TAB PO SCH (10:08)
[2022-07-13] MEDS: amLODIPine BESYLATE 5 MG TAB PO SCH (10:09)
[2022-07-13] MEDS: CITALOPRAM HYDROBR 20 MG TAB PO SCH (10:09)
[2022-07-13] MEDS ORDERED: AZITHROMYCIN 500MG/ 250ML 250 ML IV ONE (11:00)
[2022-07-13] MEDS ORDERED: cefTRIAXone 1GM/50ML D5W 50 ML IV ONE (11:00)
[2022-07-13] MEDS: ATORVASTATIN 20 MG TAB PO SCH (21:48)
[2022-07-14 05:00] VITALS: BP 96/59
[2022-07-14] MEDS: FUROSEMIDE 40 MG/4 ML VIAL IV SCH ×2 (06:45→18:12)
[2022-07-14] MEDS: ACCU-CHEK COMFORT CURVE STRIP VI SCH ×4 (06:46→21:30)
[2022-07-14] MEDS: LEVOTHYROXINE SODIUM 50 MCG TAB PO SCH (06:46)
[2022-07-14] MEDS: InsuLIN REG 1unit/0.01ml Soln (100units/ml) SC SCH ×4 (06:46→21:26)
[2022-07-14 08:00] VITALS: BP 136/69
[2022-07-14 09:00] VITALS: BP 136/69
[2022-07-14] MEDS: cefTRIAXone 1GM/50ML D5W 50 ML IV SCH (09:17)
[2022-07-14] MEDS: LISINOPRIL 20 MG TAB PO SCH (09:32)
[2022-07-14] MEDS: ASPirin-EC 81 mg tab PO SCH (09:32)
[2022-07-14] MEDS: CITALOPRAM HYDROBR 20 MG TAB PO SCH (09:38)
[2022-07-14] MEDS: amLODIPine BESYLATE 5 MG TAB PO SCH (09:38)
[2022-07-14] MEDS: PANTOPRAZOLE 40 MG TAB PO SCH ×2 (09:38→21:30)
[2022-07-14] MEDS: AZITHROMYCIN 500MG/ 250ML 250 ML IV SCH (10:06)
[2022-07-14 13:00] VITALS: BP 116/48
[2022-07-14 17:01] VITALS: BP 117/75
[2022-07-14] MEDS: ATORVASTATIN 20 MG TAB PO SCH (21:31)
[2022-07-14 22:00] VITALS: BP 122/64
[2022-07-15 05:00] VITALS: BP 113/61
[2022-07-15] MEDS: InsuLIN REG 1unit/0.01ml Soln (100units/ml) SC SCH ×2 (06:16→11:30)
[2022-07-15] MEDS: LEVOTHYROXINE SODIUM 50 MCG TAB PO SCH (06:17)
[2022-07-15] MEDS: FUROSEMIDE 40 MG/4 ML VIAL IV SCH (06:17)
[2022-07-15] MEDS: ACCU-CHEK COMFORT CURVE STRIP VI SCH ×2 (06:18→11:53)
[2022-07-15 08:30] VITALS: BP 104/47
[2022-07-15 09:00] VITALS: BP 104/47
[2022-07-15] MEDS: CITALOPRAM HYDROBR 20 MG TAB PO SCH (09:18)
[2022-07-15] MEDS: PANTOPRAZOLE 40 MG TAB PO SCH (09:18)
[2022-07-15] MEDS: LISINOPRIL 20 MG TAB PO SCH (09:18)
[2022-07-15] MEDS: cefTRIAXone 1GM/50ML D5W 50 ML IV SCH (09:19)
[2022-07-15] MEDS: ASPirin-EC 81 mg tab PO SCH (09:19)
[2022-07-15] MEDS: amLODIPine BESYLATE 5 MG TAB PO SCH (09:19)
[2022-07-15] MEDS: AZITHROMYCIN 500MG/ 250ML 250 ML IV SCH (10:11)
[2022-07-15] MEDS ORDERED: AZIT500T66 PO (10:53)
[2022-07-15] MEDS ORDERED: ALBUAER3 IN (10:53)
[2022-07-15 13:00] VITALS: BP 117/66
[2022-07-15 15:33] VITALS: BP 117/66
[2022-07-16] MEDS ORDERED: AZITHROMYCIN 250 MG TAB PO SCH (10:00)
== END 2022-07-15 17:00 | disposition home or self-care (01) | DRG 193 ==
LOC: ER 11:10 → TELE 21:25 → TELE-WESTW 22:40
PROVIDERS: ADMIT Nurse Practitioner Family; ATTEND Family Medicine
DX: J18.9 Pneumonia, unspecified organism (principal); I50.43 Acute on chronic combined systolic (congestive) and diastolic (congestive) heart failure; J96.01 Acute respiratory failure with hypoxia; I11.0 Hypertensive heart disease with heart failure; E11.65 Type 2 diabetes mellitus with hyperglycemia; E78.5 Hyperlipidemia, unspecified; E03.9 Hypothyroidism, unspecified; I05.0 Rheumatic mitral stenosis; K74.60 Unspecified cirrhosis of liver; Z20.822 Contact with and (suspected) exposure to COVID-19; K76.0 Fatty (change of) liver, not elsewhere classified; Z80.1 Family history of malignant neoplasm of trachea, bronchus and lung; Z82.49 Family history of ischemic heart disease and other diseases of the circulatory system
CPT/HCPCS: 36415; 71045; 71046; 74176; 76705; 80053; 82140; 82962; 83690; 83880; 84484; 85025; 85379; 87426; 93005; 93306; 96365; 96367; G0378; J0696; J1815

== ENCOUNTER 2023-01-29 17:29 | Inpatient (IN) | payer OTHER, MEDICAID ==
[~2023-01-29] VITALS: Ht 167.6 cm; Wt 81.5 kg
[~2023-01-29 17:29] MED LIST changes: +ALBUAER3 IN; +AZIT500T66 PO; +ESCI5TAB20 PO; -ESCI5TAB33 PO; -LISI20TA28 PO; +LISI20TA56 PO
[2023-01-29 20:45] LABS: Basophils # (auto) 0 10 ^3/uL (0-0.2); Eosinophils # (auto) 0 10 ^3/uL (0-0.8); Eosinophils % (auto) 0.1 % (0.0-7.0); Hematocrit 36.7 % (36.0-46.0); Hemoglobin 12.2 g/dL (12.2-16.2); Lymphocytes # (auto) 0.8 10 ^3/uL (0.4-5.4); Lymphocytes % (auto) 7.4 % (10.0-50.0); Mean Corpuscular Hemoglobin 28.8 pg (28.0-32.0); Mean Corpuscular Hgb Conc. 33.3 g/dL (32.0-36.0); Mean Corpuscular Volume 86.5 fL (80.0-100.0); Monocytes # (auto) 0.5 10 ^3/uL (0-1.3); Monocytes % (auto) 4.2 % (0.0-12.0); Neutrophils # (auto) 9.9 10 ^3/uL (1.6-8.6); Neutrophils % (auto) 88.3 % (37.0-80.0); Red Blood Cells 4.25 10^6/uL (4.0-5.20); Red Cell Distribution Width 14.7 % (11.8-14.3); White Blood Cell 11.2 10^3/uL (4.4-10.8)
[2023-01-29 21:29] LABS: Alanine Aminotransferase 31 U/L (7-40); Alkaline Phosphatase 188 U/L (46-116); Calcium 8.9 mg/dL (8.7-10.4); Carbon Dioxide 25 mmol/L (20-30); Chloride 107 mmol/L (98-107); Glucose 204 mg/dL (74-106); Potassium 3.5 mmol/L (3.5-5.1); Sodium 139 mmol/L (136-145)
[2023-01-29 21:30] LABS: Albumin 4.1 g/dL (3.2-4.8); Anion Gap 7 (5-15); Aspartate Aminotransferase 35 U/L (13-40); BUN/Creatinine Ratio 24.7 (10.0-20.0); Bilirubin, Total 1.4 mg/dL (0.2-1.0); Blood Urea Nitrogen 20 mg/dL (9-23); Total Protein 7.9 g/dL (5.7-8.2)
[2023-01-30] MEDS ORDERED: ASPirin-EC 325mg tab PO ONE
[2023-01-30] MEDS ORDERED: FUROSEMIDE 40 MG/4 ML VIAL IV ONE (01:15)
[2023-01-30] MEDS ORDERED: MORPHINE SULFATE INJ 2 MG/ml SYRG IV PRN (01:15)
[2023-01-30] MEDS ORDERED: ONDANSETRON HCL 4 MG/2 ML VIAL IV PRN (01:15)
[2023-01-30] MEDS ORDERED: ACETAMINOPHEN 325 MG TAB PO PRN (01:15)
[2023-01-30] MEDS ORDERED: DEXTROSE (50%) 50ML SYRG IV PRN (01:15)
[2023-01-30] MEDS ORDERED: NITROGLYCERIN 0.4 MG SL TAB SL PRN (01:15)
[2023-01-30 03:46] LABS: Urine WBC None Seen /hpf (0 - 5)
[2023-01-30 03:57] LABS: Urine Bacteria NONE SEEN /hpf (None Seen); Urine Blood Negative /uL (Negative); Urine Clarity Clear (Clear); Urine Color Colorless (Yellow); Urine Protein, UAD Negative (Negative); Urine Specific Gravity 1.007 (1.001-1.035); Urine Urobilinogen Normal (Negative)
[2023-01-30] MEDS: InsuLIN REG 1unit/0.01ml Soln (100units/ml) SC SCH ×3 (07:00→17:48)
[2023-01-30] MEDS: LEVOTHYROXINE SODIUM 100 MCG TAB PO SCH (07:09)
[2023-01-30] MEDS: ACCU-CHEK COMFORT CURVE STRIP VI SCH ×3 (07:26→17:00)
[2023-01-30] MEDS: cefTRIAXone 1GM/50ML D5W 50 ML IV SCH (09:55)
[2023-01-30] MEDS ORDERED: amLODIPine BESYLATE 5 MG TAB PO SCH (10:00)
[2023-01-30] MEDS ORDERED: METOPROLOL TARTRATE 25 MG TAB PO SCH (10:00)
[2023-01-30] MEDS ORDERED: ASPirin 81 mg TAB PO SCH (10:00)
[2023-01-30] MEDS ORDERED: AZITHROMYCIN 500MG/ 250ML 250 ML IV SCH (10:00)
[2023-01-30] MEDS: ENOXAPARIN SOD 40 MG/0.4 ML SYRINGE SC SCH (11:02)
[2023-01-30] MEDS ORDERED: LISINOPRIL 20 MG TAB PO ONE (11:45)
[2023-01-30 12:02] LABS: Basophils # (auto) 0 10 ^3/uL (0-0.2); Basophils % (auto) 0.4 % (0.0-2.0); Eosinophils # (auto) 0.1 10 ^3/uL (0-0.8); Eosinophils % (auto) 1.1 % (0.0-7.0); Hematocrit 34.6 % (36.0-46.0); Hemoglobin 11.7 g/dL (12.2-16.2); Lymphocytes # (auto) 1.3 10 ^3/uL (0.4-5.4); Lymphocytes % (auto) 16.5 % (10.0-50.0); Mean Corpuscular Hemoglobin 29.2 pg (28.0-32.0); Mean Corpuscular Hgb Conc. 33.8 g/dL (32.0-36.0); Mean Corpuscular Volume 86.2 fL (80.0-100.0); Monocytes # (auto) 0.4 10 ^3/uL (0-1.3); Monocytes % (auto) 4.9 % (0.0-12.0); Neutrophils # (auto) 6.2 10 ^3/uL (1.6-8.6); Neutrophils % (auto) 77.1 % (37.0-80.0); Nucleated Red Blood Cells % 0.2 %; Red Blood Cells 4.02 10^6/uL (4.0-5.20); Red Cell Distribution Width 14.5 % (11.8-14.3)
[2023-01-30 12:21] LABS: Alanine Aminotransferase 27 U/L (7-40); Alkaline Phosphatase 138 U/L (46-116); Anion Gap 9 (5-15); Aspartate Aminotransferase 34 U/L (13-40); BUN/Creatinine Ratio 18.4 (10.0-20.0); Bilirubin, Total 1.9 mg/dL (0.2-1.0); Blood Urea Nitrogen 14 mg/dL (9-23); Calcium 8.9 mg/dL (8.7-10.4); Carbon Dioxide 28 mmol/L (20-30); Chloride 104 mmol/L (98-107); Glucose 129 mg/dL (74-106); Magnesium 1.6 mg/dL (1.6-2.6); Potassium 3.1 mmol/L (3.5-5.1); Sodium 141 mmol/L (136-145); Total Protein 7.7 g/dL (5.7-8.2)
[2023-01-30 12:30] LABS: CRP High Sensitivity 0.69 mg/dL (<1.0)
[2023-01-30] MEDS: DOXYCYCLINE 100MG/250ML 250 ML IV SCH ×2 (15:27→23:12)
[2023-01-30] MEDS ORDERED: POTASSIUM CHL 20 Meq TABLET PO ONE (18:45)
[2023-01-30] MEDS: FUROSEMIDE 20 MG/2 ML VIAL IV SCH (19:07)
[2023-01-30 19:32] VITALS: PULSE 76; RESP 21; O2SAT 96
[2023-01-30] MEDS ORDERED: ATORVASTATIN 20 MG TAB PO SCH ×2 (22:00)
[2023-01-30 22:15] LABS: INR 1.13 (0.9-1.15); Prothrombin Time 11.8 sec (9.3-11.8)
[2023-01-30 23:53] VITALS: BP 136/60; PULSE 72; RESP 16; TEMP 98.2; O2SAT 92
[2023-01-31 05:21] VITALS: BP 115/56; PULSE 71; RESP 16; TEMP 98; O2SAT 95
[2023-01-31] MEDS: LEVOTHYROXINE SODIUM 100 MCG TAB PO SCH (05:57)
[2023-01-31] MEDS: FUROSEMIDE 20 MG/2 ML VIAL IV SCH ×2 (05:57→17:56)
[2023-01-31 07:35] LABS: Alanine Aminotransferase 22 U/L (7-40); Albumin 3.7 g/dL (3.2-4.8); Alkaline Phosphatase 118 U/L (46-116); Anion Gap 7 (5-15); Aspartate Aminotransferase 28 U/L (13-40); Bilirubin, Total 1.7 mg/dL (0.2-1.0); Blood Urea Nitrogen 22 mg/dL (9-23); Calcium 8.7 mg/dL (8.7-10.4); Carbon Dioxide 31 mmol/L (20-30); Chloride 101 mmol/L (98-107); Glucose 134 mg/dL (74-106); Magnesium 1.5 mg/dL (1.6-2.6); Potassium 3.4 mmol/L (3.5-5.1); Sodium 139 mmol/L (136-145); Total Protein 7.3 g/dL (5.7-8.2)
[2023-01-31 07:40] LABS: Basophils # (auto) 0 10 ^3/uL (0-0.2); Basophils % (auto) 0.3 % (0.0-2.0); Eosinophils # (auto) 0.2 10 ^3/uL (0-0.8); Eosinophils % (auto) 2.9 % (0.0-7.0); Hematocrit 36.5 % (36.0-46.0); Hemoglobin 12.4 g/dL (12.2-16.2); Lymphocytes # (auto) 1.3 10 ^3/uL (0.4-5.4); Lymphocytes % (auto) 18.7 % (10.0-50.0); Mean Corpuscular Hemoglobin 29.2 pg (28.0-32.0); Mean Corpuscular Hgb Conc. 33.8 g/dL (32.0-36.0); Mean Corpuscular Volume 86.2 fL (80.0-100.0); Monocytes # (auto) 0.4 10 ^3/uL (0-1.3); Monocytes % (auto) 6.2 % (0.0-12.0); Neutrophils # (auto) 4.9 10 ^3/uL (1.6-8.6); Neutrophils % (auto) 71.9 % (37.0-80.0); Red Blood Cells 4.24 10^6/uL (4.0-5.20); Red Cell Distribution Width 14.7 % (11.8-14.3); White Blood Cell 6.8 10^3/uL (4.4-10.8)
[2023-01-31 08:00] VITALS: BP 120/62; PULSE 72; PULSE 85; RESP 18; TEMP 98.1; O2SAT 92
[2023-01-31 09:00] VITALS: BP 120/62; PULSE 85; RESP 18; TEMP 98.1; O2SAT 92
[2023-01-31] MEDS ORDERED: ASPirin-EC 81 mg tab PO SCH (10:00)
[2023-01-31] MEDS ORDERED: LISINOPRIL 20 MG TAB PO SCH (10:00)
[2023-01-31] MEDS ORDERED: DOXY-448 PO (10:03)
[2023-01-31] MEDS ORDERED: FURO1TAB33 PO (10:03)
[2023-01-31] MEDS: DOXYCYCLINE 100MG/250ML 250 ML IV SCH (10:54)
[2023-01-31] MEDS: ENOXAPARIN SOD 40 MG/0.4 ML SYRINGE SC SCH (10:59)
[2023-01-31] MEDS: MAGNESIUM SULFATE 1GM/100ML 100 ML IV SCH ×2 (11:06→17:37)
[2023-01-31] MEDS: cefTRIAXone 1GM/50ML D5W 50 ML IV SCH (11:07)
[2023-01-31] MEDS: POTASSIUM CHL 20MEQ/100ML 100 ML IV SCH ×2 (11:07→17:55)
[2023-01-31 13:07] VITALS: BP 130/45; PULSE 73; RESP 16; TEMP 98.3; O2SAT 94
[2023-01-31 17:00] VITALS: BP 111/60; PULSE 83; RESP 20; TEMP 98.5; O2SAT 96
[2023-01-31 20:00] VITALS: BP 120/62; PULSE 72; PULSE 85; RESP 18; TEMP 98.1; O2SAT 92
== END 2023-01-31 20:38 | disposition home or self-care (01) | DRG 177 ==
LOC: ER 17:29 → EDBD 17:29 → TELE 01-30 01:08 → TELE-WESTW 01-30 21:28
PROVIDERS: ADMIT Internal Medicine Pulmonary Disease; ATTEND Student in an Organized Health Care Education/Training Program
DX: J15.69 Pneumonia due to other Gram-negative bacteria (principal); I50.33 Acute on chronic diastolic (congestive) heart failure; J91.8 Pleural effusion in other conditions classified elsewhere; I11.0 Hypertensive heart disease with heart failure; E11.9 Type 2 diabetes mellitus without complications; E03.9 Hypothyroidism, unspecified; E66.9 Obesity, unspecified; E78.5 Hyperlipidemia, unspecified; E87.6 Hypokalemia; E83.42 Hypomagnesemia; I08.0 Rheumatic disorders of both mitral and aortic valves; K74.60 Unspecified cirrhosis of liver; Z80.1 Family history of malignant neoplasm of trachea, bronchus and lung; Z82.49 Family history of ischemic heart disease and other diseases of the circulatory system; Z68.29 Body mass index [BMI] 29.0-29.9, adult; J15.9 Unspecified bacterial pneumonia
CPT/HCPCS: 36415; 70450; 71045; 80053; 81001; 82962; 83036; 83605; 83735; 83880; 84443; 84484; 85025; 85379; 85610; 85730; 86141; 93005; 93306; 93970; G0378; J0696; J1815; J3480; J3490